=== PATIENT | male | born 1965 | race Caucasian/White ===

== ENCOUNTER 2017-12-06 20:06 | Inpatient (IN) | payer SELFPAY ==
[~2017-12-06] VITALS: Ht 177.8 cm; Wt 64.7 kg
[~2017-12-06 20:06] MED LIST: BUSP30TA PO; CLON1TAB4 PO; CLON2TAB PO; LEVE500T56 PO; MIRT30TA PO; OXYC-328 PO; OXYC10TA PO; QUET50TA5 PO
[2017-12-06 20:42] LABS: BILIRUBIN,URINE NEGATIVE (NEG); CLARITY,URINE CLEAR; COLOR,URINE YELLOW; NITRITE,URINE NEGATIVE (NEG); PH,URINE 6.5; PROTEIN,URINE NEGATIVE (NEG-TRACE); UROBILINOGEN,URINE 0.2 mg/dL (0.2 mg/dL)
[2017-12-06] MEDS ORDERED: IV NORMAL SALINE 1000ML BAG 1,000 ML IV ONE ×2 (20:45→22:15)
[2017-12-06] MEDS ORDERED: MORPHINE SULFATE 10 MG/ML VIAL. IV ONE ×2 (20:45→22:15)
[2017-12-06] MEDS ORDERED: ONDANSETRON PF 4 MG/2 ML VIAL. IV ONE (20:45)
[2017-12-06 20:47] LABS: BASO % 0 % (0-3); EOS % 0 % (0-3); HEMATOCRIT 35.2 % (39.0-53.0); HEMOGLOBIN 12.2 g/dL (13.0-17.5); LYMPH # 1.2 x10^3/uL (1.0-4.8); LYMPH % 19 % (24-48); MEAN CORPUSCULAR HEMOGLOBIN 33 pg (25-35); MEAN CORPUSCULAR HGB CONC 35 g/dL (31-37); MEAN CORPUSCULAR VOLUME 95 fL (79-100); MONO # 0.3 x10^3/uL (0.0-1.1); MONO % 5 % (0-9); NEUT # 4.7 x10^3uL (1.8-7.7); NEUT % 76 % (31-73); PLATELET COUNT 253 x10^3/uL (140-400); RED BLOOD COUNT 3.73 x10^6/uL (4.30-5.70); RED CELL DISTRIBUTION WIDTH 12.4 % (11.5-14.5); WHITE BLOOD COUNT 6.2 x10^3/uL (4.0-11.0)
[2017-12-06 20:51] LABS: BACTERIA,URINE 0 /HPF (0-FEW); RBC,URINE 0 /HPF (0-2); WBC,URINE 0 /HPF (0-4)
[2017-12-06 20:56] LABS: CALCIUM 8.8 mg/dL (8.5-10.1); CREATININE 0.8 mg/dL (0.7-1.3); GFR 101.9; POTASSIUM 3.9 mmol/L (3.5-5.1)
[2017-12-06 20:59] LABS: BARBITURATES NEG (NEG); BENZODIAZEPINES NEG (NEG); CANNABINOIDS NEG (NEG); COCAINE NEG (NEG); METHADONE NEG (NEG); OPIATES NEG (NEG); PHENCYCLIDINE NEG (NEG)
[2017-12-06 21:00] LABS: AMPHETAMINE/METHAMPHETAMINE NEG (NEG)
[2017-12-06] MEDS ORDERED: CONTRAST GIVEN. MC PRN (21:00)
[2017-12-06] MEDS ORDERED: IOHEXOL 300 MG/ML 100ML VIAL. IV ONE (21:00)
[2017-12-06 21:01] LABS: ALBUMIN 3.7 g/dL (3.4-5.0); ALBUMIN/GLOBULIN RATIO 1.2 (1.0-1.7); TOTAL BILIRUBIN 0.3 mg/dL (0.2-1.0); TOTAL PROTEIN 6.8 g/dL (6.4-8.2)
--- NOTE | 2017-12-06 21:12 | PHYS DOC ---
Past Medical History Past Medical History: Depression, Diverticulitis, Pancreatitis Additional Past Medical Histor: chronic low back pain Past Surgical History: Other Additional Past Surgical Histo: SPINAL FUSION, HERNIA X 2, L ANKLE SX Alcohol Use: None Drug Use: None Adult General Chief Complaint Chief Complaint: ABDOMINAL PAIN HPI HPI Patient is a 52 year old male with history of pancreatitis, diverticulitis, depression, who presents today complaining of 8 out of 10 left-sided abdominal pain with nausea, vomiting and diarrhea that began 4 days ago. Patient denies any fever. Denies any alcohol abuse. Denies any chest pain or shortness of breath. Denies any hematemesis or melena. Denies any urgency frequency or dysuria. PCP Dr. Lawler Review of Systems Review of Systems Constitutional: Denies fever or chills [] Eyes: Denies change in visual acuity, redness, or eye pain [] HENT: Denies nasal congestion or sore throat [] Respiratory: Denies cough or shortness of breath [] Cardiovascular: No additional information not addressed in HPI [] GI: Reports left-sided abdominal pain, nausea vomiting and diarrhea denies, bloody stools : Denies dysuria or hematuria [] Musculoskeletal: Denies back pain or joint pain [] Integument: Denies rash or skin lesions [] Neurologic: Denies headache, focal weakness or sensory changes [] All other systems were reviewed and found to be within normal limits, except as documented in this note. Current Medications Current Medications Current Medications Medications (Trade) Dose Ordered Sig/Ni Start Time Stop Time Status Last Admin Dose Admin Info (CONTRAST GIVEN -- Rx MONITORING) 1 each PRN DAILY PRN 12/06/17 21:00 12/08/17 20:59 Iohexol (Omnipaque 300 Mg/ml) 75 ml 1X ONCE 12/06/17 21:00 12/06/17 21:01 DC 12/06/17 21:11 75 ML Morphine Sulfate (Morphine Sulfate) 5 mg 1X ONCE 12/06/17 22:15 12/06/17 22:16 DC Ondansetron HCl (Zofran) 4 mg 1X ONCE 12/06/17 20:45 12/06/17 20:51 DC 12/06/17 20:45 4 MG Sodium Chloride 1,000 ml @ 1,000 mls/hr 1X ONCE 12/06/17 20:45 12/06/17 21:44 DC 12/06/17 20:45 1,000 MLS/HR Allergies Allergies Allergies Coded Allergies Type Severity Reaction Last Updated Verified Penicillins Allergy Severe Anaphylaxis 02/07/15 Yes sulfamethoxazole Allergy Severe Anaphylaxis 02/07/15 Yes trimethoprim Allergy Severe Anaphylaxis 02/07/15 Yes acetaminophen Allergy Intermediate R/T PANCREATITIS 01/03/17 Yes Physical Exam Physical Exam Constitutional: Well developed, well nourished, no acute distress, non-toxic appearance. [] HENT: Normocephalic, atraumatic, bilateral external ears normal, oropharynx moist, no oral exudates, nose normal. [] Eyes: PERRLA, EOMI, conjunctiva normal, no discharge. [] Neck: Normal range of motion, no tenderness, supple, no stridor. [] Cardiovascular:Heart rate regular rhythm, no murmur [] Lungs & Thorax: Bilateral breath sounds clear to auscultation [] Abdomen: Bowel sounds normal, soft, slight tenderness to epigastric and left upper quadrant, no right upper quadrant or right lower quadrant tenderness, no masses, no pulsatile masses. [] Skin: Warm, dry, no erythema, no rash. [] Back: No tenderness, no CVA tenderness. [] Extremities: No tenderness, no cyanosis, no clubbing, ROM intact, no edema. [] Neurologic: Alert and oriented X 3, normal motor function, normal sensory function, no focal deficits noted. [] Psychologic: Affect normal, judgement normal, mood normal. [] Current Patient Data Vital Signs Vital Signs Date Time Temp Pulse Resp B/P (MAP) Pulse Ox O2 Delivery O2 Flow Rate FiO2 12/06/17 20:16 98.0 87 18 128/62 (84) 99 Room Air 98.0 Lab Values Laboratory Tests Test 12/06/17 20:30 White Blood Count 6.2 x10^3/uL (4.0-11.0) Red Blood Count 3.73 x10^6/uL (4.30-5.70) L Hemoglobin 12.2 g/dL (13.0-17.5) L Hematocrit 35.2 % (39.0-53.0) L Mean Corpuscular Volume 95 fL (79-100) Mean Corpuscular Hemoglobin 33 pg (25-35) Mean Corpuscular Hemoglobin Concent 35 g/dL (31-37) Red Cell Distribution Width 12.4 % (11.5-14.5) Platelet Count 253 x10^3/uL (140-400) Neutrophils (%) (Auto) 76 % (31-73) H Lymphocytes (%) (Auto) 19 % (24-48) L Monocytes (%) (Auto) 5 % (0-9) Eosinophils (%) (Auto) 0 % (0-3) Basophils (%) (Auto) 0 % (0-3) Neutrophils # (Auto) 4.7 x10^3uL (1.8-7.7) Lymphocytes # (Auto) 1.2 x10^3/uL (1.0-4.8) Monocytes # (Auto) 0.3 x10^3/uL (0.0-1.1) Eosinophils # (Auto) 0.0 x10^3/uL (0.0-0.7) Basophils # (Auto) 0.0 x10^3/uL (0.0-0.2) Urine Collection Type Unknown Urine Color Yellow Urine Clarity Clear Urine pH 6.5 Urine Specific [place] 1.015 Urine Protein Negative mg/dL (NEG-TRACE) Urine Glucose (UA) Negative mg/dL (NEG) Urine Ketones (Stick) Negative mg/dL (NEG) Urine Blood Negative (NEG) Urine Nitrite Negative (NEG) Urine Bilirubin Negative (NEG) Urine Urobilinogen Dipstick 0.2 mg/dL (0.2 mg/dL) Urine Leukocyte Esterase Negative (NEG) Urine RBC 0 /HPF (0-2) Urine WBC 0 /HPF (0-4) Urine Bacteria 0 /HPF (0-FEW) Urine Mucus Slight /LPF Sodium Level 141 mmol/L (136-145) Potassium Level 3.9 mmol/L (3.5-5.1) Chloride Level 104 mmol/L (98-107) Carbon Dioxide Level 28 mmol/L (21-32) Anion Gap 9 (6-14) Blood Urea Nitrogen 6 mg/dL (8-26) L Creatinine 0.8 mg/dL (0.7-1.3) Estimated GFR (Cockcroft-Gault) 101.9 BUN/Creatinine Ratio 8 (6-20) Glucose Level 125 mg/dL (70-99) H Calcium Level 8.8 mg/dL (8.5-10.1) Total Bilirubin 0.3 mg/dL (0.2-1.0) Aspartate Amino Transferase (AST) 13 U/L (15-37) L Alanine Aminotransferase (ALT) 17 U/L (16-63) Alkaline Phosphatase 68 U/L (46-116) Total Protein 6.8 g/dL (6.4-8.2) Albumin 3.7 g/dL (3.4-5.0) Albumin/Globulin Ratio 1.2 (1.0-1.7) Lipase 78 U/L (73-393) Urine Opiates Screen Neg (NEG) Urine Methadone Screen Neg (NEG) Urine Barbiturates Neg (NEG) Urine Phencyclidine Screen Neg (NEG) Urine Amphetamine/Methamphetamine Neg (NEG) Urine Benzodiazepines Screen Neg (NEG) Urine Cocaine Screen Neg (NEG) Urine Cannabinoids Screen Neg (NEG) Ethyl Alcohol Level < 10 mg/dL (0-10) Urine Ethyl Alcohol Neg (NEG) Laboratory Tests 12/06/17 20:30 Laboratory Tests 12/06/17 20:30 EKG EKG [] Radiology/Procedures Radiology/Procedures []PROCEDURE: CT ABD PELV W/ IV CONTRST ONLY CT scan of the abdomen and pelvis with contrast 12/06/2017 CLINICAL HISTORY: Left lower quadrant abdominal pain. TECHNIQUE: After the intravenous administration of 75 cc of Omnipaque 300, contiguous, 5 mm axial sections were obtained through the abdomen and pelvis. One or more of the following individualized dose reduction techniques were utilized for this study: 1. Automated exposure control. 2. Adjustment of the mA and/or kV according to patient size. 3. Use of iterative reconstruction technique. FINDINGS: Comparison study is dated 06/24/2017. Images through the lung bases demonstrate a 6 mm calcified granuloma involving the right lower lobe, unchanged. The liver, adrenal glands and kidneys are within normal limits. Calcified granuloma seen involving the spleen, unchanged. Atrophy of the tail of pancreas is noted. Multiple calcifications are seen throughout the pancreas consistent with chronic pancreatitis. No acute abnormality of the pancreas is seen. The abdominal aorta tapers normally. The gallbladder is slightly contracted. No free fluid or free air is seen within the abdomen. There is no evidence of bowel obstruction. Images through the pelvis demonstrate the urinary bladder distended with urine. Calcifications are seen within the pelvis consistent with phleboliths. No free fluid is seen. The patient is post laminectomy, discectomy and fusion using pedicle screws, stabilizing rods and bone graft material at L4-5. IMPRESSION: No acute abnormality is seen. Electronically signed by: Micah Wilson MD (12/06/2017 9:40 PM) [facility] DICTATED and SIGNED BY: MICAH WILSON MD DATE: 12/06/17 4673 Course & Med Decision Making Course & Med Decision Making Pertinent Labs and Imaging studies reviewed. (See chart for details) This is a 52-year-old male patient with history of pancreatitis and diverticulitis who presents today complaining of left-sided abdominal pain with nausea vomiting and diarrhea that began 4 days ago. Patient is asking for Dilaudid on arrival to the ED. CBC, CMP, lipase with no acute findings. CT of the abdomen and pelvic was negative for any acute findings, noted for chronic pancreatitis. Gave patient results, his first comment was "i thought CTs take 2 hours to come back" Informed him we not busy today and his CT results came back less than 2 hours. Informed patient there is nothing acute in his workup today. Patient states he would like to be admitted for intractable pain. Ktracs shows he filled rx for oxycodone 20 mg 180 tablets on 11/22/2017. 22:[address] Paredes who accepted patient for admission. Radames Disclaimer Radames Disclaimer This electronic medical record was generated, in whole or in part, using a voice recognition dictation system. Departure Departure Impression: Primary Impression: Intractable abdominal pain Additional Impressions: Nausea and vomiting Diarrhea Chronic pancreatitis Disposition: ADMITTED INPATIENT Condition: STABLE Referrals: SANDRA LAWLER (PCP) Problem Qualifiers Additional Impressions: Nausea and vomiting Vomiting type: unspecified Vomiting Intractability: unspecified Qualified Codes: R11.2 - Nausea with vomiting, unspecified Diarrhea Diarrhea type: unspecified type Qualified Codes: R19.7 - Diarrhea, unspecified Chronic pancreatitis Pancreatitis type: unspecified pancreatitis type Qualified Codes: K86.1 - Other chronic pancreatitis JOE ALMONTE APRN Dec 06, 2017 21:12
--- NOTE | 2017-12-06 21:44 | RAD ---
CT scan of the abdomen and pelvis with contrast 12/06/2017 CLINICAL HISTORY: Left lower quadrant abdominal pain. TECHNIQUE: After the intravenous administration of 75 cc of Omnipaque 300, contiguous, 5 mm axial sections were obtained through the abdomen and pelvis. One or more of the following individualized dose reduction techniques were utilized for this study: 1. Automated exposure control. 2. Adjustment of the mA and/or kV according to patient size. 3. Use of iterative reconstruction technique. FINDINGS: Comparison study is dated 06/24/2017. Images through the lung bases demonstrate a 6 mm calcified granuloma involving the right lower lobe, unchanged. The liver, adrenal glands and kidneys are within normal limits. Calcified granuloma seen involving the spleen, unchanged. Atrophy of the tail of pancreas is noted. Multiple calcifications are seen throughout the pancreas consistent with chronic pancreatitis. No acute abnormality of the pancreas is seen. The abdominal aorta tapers normally. The gallbladder is slightly contracted. No free fluid or free air is seen within the abdomen. There is no evidence of bowel obstruction. Images through the pelvis demonstrate the urinary bladder distended with urine. Calcifications are seen within the pelvis consistent with phleboliths. No free fluid is seen. The patient is post laminectomy, discectomy and fusion using pedicle screws, stabilizing rods and bone graft material at L4-5. IMPRESSION: No acute abnormality is seen. Electronically signed by: Micah Wilson MD (12/06/2017 9:40 PM) [facility]
[2017-12-07] VITALS (8 sets, daily range): BP systolic 87–123; BP diastolic 50–73
[2017-12-07] MEDS ORDERED: OXYC60TA7 PO (00:04)
[2017-12-07] MEDS: MORPHINE SULFATE 4 MG/ML DISP.SYRIN. IV PRN ×5 (00:15→08:48)
[2017-12-07 07:29] LABS: BASO % 1 % (0-3); EOS # 0.1 x10^3/uL (0.0-0.7); EOS % 3 % (0-3); HEMATOCRIT 31.6 % (39.0-53.0); LYMPH # 1.9 x10^3/uL (1.0-4.8); LYMPH % 42 % (24-48); MEAN CORPUSCULAR HEMOGLOBIN 33 pg (25-35); MEAN CORPUSCULAR HGB CONC 35 g/dL (31-37); MEAN CORPUSCULAR VOLUME 95 fL (79-100); MONO # 0.3 x10^3/uL (0.0-1.1); MONO % 6 % (0-9); NEUT # 2.2 x10^3uL (1.8-7.7); NEUT % 48 % (31-73); PLATELET COUNT 187 x10^3/uL (140-400); RED BLOOD COUNT 3.34 x10^6/uL (4.30-5.70); RED CELL DISTRIBUTION WIDTH 12.8 % (11.5-14.5); WHITE BLOOD COUNT 4.6 x10^3/uL (4.0-11.0)
[2017-12-07 07:52] LABS: ALBUMIN 3.1 g/dL (3.4-5.0); ALBUMIN/GLOBULIN RATIO 1.1 (1.0-1.7); CALCIUM 8.4 mg/dL (8.5-10.1); CREATININE 0.8 mg/dL (0.7-1.3); GFR 101.9; POTASSIUM 3.7 mmol/L (3.5-5.1); TOTAL BILIRUBIN 0.4 mg/dL (0.2-1.0)
[2017-12-07] MEDS: ONDANSETRON PF 4 MG/2 ML VIAL. IV PRN ×2 (08:50→17:18)
[2017-12-07] MEDS ORDERED: PANT20TA2 PO (08:56)
--- NOTE | 2017-12-07 09:27 | PDOC2 ---
GI CONSULT Reason For Consult: Intractable abd pain, n/v HPI: HPI: 52 y/o male who we have seen a few times before. Previous h/o alcohol abuse w/ chronic pancreatitis, pancreatic stone, and chronic abd pain w/ intermittent n/ v and diarrhea w/ reported weight loss. On oxycodone QID. Has had more than one surgical eval here in the past but has not pursued surgery saying that he wants a second opinion at [facility]. He says his PCP, Dr. Linton, sent a referral there last week. He says since his last admission here in 05/2017, he has been to the ER and [facility] urgent care. Current episode began 4 days ago w/o precipitating events. 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 Denies bleeding. Doesn't think previous EGD though one discussed earlier this year @ . Reports benign polyps on colonoscopy in 2016. Denies liver or GB history. Has declined pancreatic enzymes in the past as these have been ineffective previously. He doesn't know if he wants to try drinking liquids and wants to know when his pain medication will be brought to him. PMH: PMH: GERD, pancreatitis, seizures, anxiety, depression, bipolar, umbilical hernia repair, left inguinal hernia repair, left ankle fracture/surgery, lumbar fusion FH: Family History: No pertinent hx Social History: Smoke: Quit ALCOHOL: other (drank when he was younger - none now) ROS: GEN: Denies fevers, chills, sweats HEENT: Denies blurred vision, sore throat CV: Denies chest pain RESP: Denies shortness of air, cough GI: Per HPI : Denies hematuria, dysuria ENDO: +weight loss NEURO: Denies confusion, dizziness MSK: Denies weakness, joint pain/swelling SKIN: Denies jaundice, pruritus Vitals: Vitals: Vital Signs Date Time Temp Pulse Resp B/P (MAP) Pulse Ox O2 Delivery O2 Flow Rate FiO2 12/07/17 08:48 97 Room Air 12/07/17 07:00 98.2 46 16 97/55 (69) 98.2 Labs: Labs: Laboratory Tests Test 12/06/17 20:30 12/07/17 06:30 White Blood Count 6.2 x10^3/uL (4.0-11.0) 4.6 x10^3/uL (4.0-11.0) Red Blood Count 3.73 x10^6/uL (4.30-5.70) 3.34 x10^6/uL (4.30-5.70) Hemoglobin 12.2 g/dL (13.0-17.5) 11.0 g/dL (13.0-17.5) Hematocrit 35.2 % (39.0-53.0) 31.6 % (39.0-53.0) Mean Corpuscular Volume 95 fL (79-100) 95 fL (79-100) Mean Corpuscular Hemoglobin 33 pg (25-35) 33 pg (25-35) Mean Corpuscular Hemoglobin Concent 35 g/dL (31-37) 35 g/dL (31-37) Red Cell Distribution Width 12.4 % (11.5-14.5) 12.8 % (11.5-14.5) Platelet Count 253 x10^3/uL (140-400) 187 x10^3/uL (140-400) Neutrophils (%) (Auto) 76 % (31-73) 48 % (31-73) Lymphocytes (%) (Auto) 19 % (24-48) 42 % (24-48) Monocytes (%) (Auto) 5 % (0-9) 6 % (0-9) Eosinophils (%) (Auto) 0 % (0-3) 3 % (0-3) Basophils (%) (Auto) 0 % (0-3) 1 % (0-3) Neutrophils # (Auto) 4.7 x10^3uL (1.8-7.7) 2.2 x10^3uL (1.8-7.7) Lymphocytes # (Auto) 1.2 x10^3/uL (1.0-4.8) 1.9 x10^3/uL (1.0-4.8) Monocytes # (Auto) 0.3 x10^3/uL (0.0-1.1) 0.3 x10^3/uL (0.0-1.1) Eosinophils # (Auto) 0.0 x10^3/uL (0.0-0.7) 0.1 x10^3/uL (0.0-0.7) Basophils # (Auto) 0.0 x10^3/uL (0.0-0.2) 0.0 x10^3/uL (0.0-0.2) Urine Collection Type Unknown Urine Color Yellow Urine Clarity Clear Urine pH 6.5 Urine Specific [place] 1.015 Urine Protein Negative mg/dL (NEG-TRACE) Urine Glucose (UA) Negative mg/dL (NEG) Urine Ketones (Stick) Negative mg/dL (NEG) Urine Blood Negative (NEG) Urine Nitrite Negative (NEG) Urine Bilirubin Negative (NEG) Urine Urobilinogen Dipstick 0.2 mg/dL (0.2 mg/dL) Urine Leukocyte Esterase Negative (NEG) Urine RBC 0 /HPF (0-2) Urine WBC 0 /HPF (0-4) Urine Bacteria 0 /HPF (0-FEW) Urine Mucus Slight /LPF Sodium Level 141 mmol/L (136-145) 143 mmol/L (136-145) Potassium Level 3.9 mmol/L (3.5-5.1) 3.7 mmol/L (3.5-5.1) Chloride Level 104 mmol/L (98-107) 108 mmol/L (98-107) Carbon Dioxide Level 28 mmol/L (21-32) 29 mmol/L (21-32) Anion Gap 9 (6-14) 6 (6-14) Blood Urea Nitrogen 6 mg/dL (8-26) 5 mg/dL (8-26) Creatinine 0.8 mg/dL (0.7-1.3) 0.8 mg/dL (0.7-1.3) Estimated GFR (Cockcroft-Gault) 101.9 101.9 BUN/Creatinine Ratio 8 (6-20) 6 (6-20) Glucose Level 125 mg/dL (70-99) 105 mg/dL (70-99) Calcium Level 8.8 mg/dL (8.5-10.1) 8.4 mg/dL (8.5-10.1) Total Bilirubin 0.3 mg/dL (0.2-1.0) 0.4 mg/dL (0.2-1.0) Aspartate Amino Transf (AST/SGOT) 13 U/L (15-37) 11 U/L (15-37) Alanine Aminotransferase (ALT/SGPT) 17 U/L (16-63) 14 U/L (16-63) Alkaline Phosphatase 68 U/L (46-116) 54 U/L (46-116) Total Protein 6.8 g/dL (6.4-8.2) 6.0 g/dL (6.4-8.2) Albumin 3.7 g/dL (3.4-5.0) 3.1 g/dL (3.4-5.0) Albumin/Globulin Ratio 1.2 (1.0-1.7) 1.1 (1.0-1.7) Lipase 78 U/L (73-393) Urine Opiates Screen Neg (NEG) Urine Methadone Screen Neg (NEG) Urine Barbiturates Neg (NEG) Urine Phencyclidine Screen Neg (NEG) Urine Amphetamine/Methamphetamine Neg (NEG) Urine Benzodiazepines Screen Neg (NEG) Urine Cocaine Screen Neg (NEG) Urine Cannabinoids Screen Neg (NEG) Ethyl Alcohol Level < 10 mg/dL (0-10) Urine Ethyl Alcohol Neg (NEG) Allergies: Coded Allergies: Penicillins (Verified Allergy, Severe, Anaphylaxis, 02/07/15) sulfamethoxazole (Verified Allergy, Severe, Anaphylaxis, 02/07/15) trimethoprim (Verified Allergy, Severe, Anaphylaxis, 02/07/15) acetaminophen (Verified Allergy, Intermediate, R/T PANCREATITIS, 01/03/17) Medications: Current Medications Medications (Trade) Dose Ordered Sig/Ni Route PRN Reason Start Time Stop Time Status Last Admin Dose Admin Sodium Chloride 1,000 ml @ 1,000 mls/hr 1X ONCE IV 12/06/17 20:45 12/06/17 21:44 DC 12/06/17 20:45 Ondansetron HCl (Zofran) 4 mg 1X ONCE IV 12/06/17 20:45 12/06/17 20:51 DC 12/06/17 20:45 Morphine Sulfate (Morphine Sulfate) 5 mg 1X ONCE IV 12/06/17 20:45 12/06/17 20:50 DC 12/06/17 20:45 Iohexol (Omnipaque 300 Mg/ml) 75 ml 1X ONCE IV 12/06/17 21:00 12/06/17 21:01 DC 12/06/17 21:11 Morphine Sulfate (Morphine Sulfate) 5 mg 1X ONCE IV 12/06/17 22:15 12/06/17 22:16 DC 12/06/17 22:15 Ondansetron HCl (Zofran) 4 mg PRN Q8HRS PRN IV NAUSEA/VOMITING 12/06/17 22:15 12/07/17 22:14 12/07/17 08:50 Morphine Sulfate (Morphine Sulfate) 4 mg PRN Q2HR PRN IV PAIN 12/06/17 22:15 12/07/17 22:14 12/07/17 08:48 Sodium Chloride 1,000 ml @ 100 mls/hr 1X ONCE IV 12/06/17 22:15 12/07/17 08:14 DC 12/07/17 00:41 Imaging: Imaging: CT A/P Images through the lung bases demonstrate a 6 mm calcified granuloma involving the right lower lobe, unchanged. The liver, adrenal glands and kidneys are within normal limits. Calcified granuloma seen involving the spleen, unchanged. Atrophy of the tail of pancreas is noted. Multiple calcifications are seen throughout the pancreas consistent with chronic pancreatitis. No acute abnormality of the pancreas is seen. The abdominal aorta tapers normally. The gallbladder is slightly contracted. No free fluid or free air is seen within the abdomen. There is no evidence of bowel obstruction. Images through the pelvis demonstrate the urinary bladder distended with urine. Calcifications are seen within the pelvis consistent with phleboliths. No free fluid is seen. The patient is post laminectomy, discectomy and fusion using pedicle screws, stabilizing rods and bone graft material at L4- 5. IMPRESSION: No acute abnormality is seen. PE: GEN: NAD HEENT: Atraumatic, PERRL LUNGS: CTAB HEART: bradycardic ABD: NABS, periumbilical discomfort EXTREMITY: No edema SKIN: No rashes, no jaundice NEURO/PSYCH: A & O 3, flat, does not make eye contact, seems annoyed A/P: A/P: Chronic abd pain w/ recurrent n/v, diarrhea, and weight loss Chronic pancreatitis, pancreatic stone - surgery offered in the past, declined by pt who wants to be seen at 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 Pain control per primary - hostile to staff in the past. Okay to try [employer] fox. SHAJI RIBERA Dec 07, 2017 09:27
--- NOTE | 2017-12-07 09:55 | PDOC1 ---
History and Physical Date of Admission Date of Admission DATE: 12/07/17 TIME: 09:52 Identification/Chief Complaint Chief Complaint abd pain Source Source: Chart review, Patient History of Present Illness History of Present Illness Vu is a 52 y/o male readmit with worsening abd pain. . Previous h/o alcohol abuse w/ chronic pancreatitis, pancreatic stone, and chronic abd pain w/ intermittent n/v and diarrhea w/ reported weight loss. was DC here on oxycodone QID. prior surgical eval here, has not followed up, plans to [facility] Past Medical History Cardiovascular: No pertinent hx Pulmonary: No pertinent hx CENTRAL NERVOUS SYSTEM: Seizure GI: No pertinent hx Heme/Onc: No pertinent hx Hepatobiliary: No pertinent hx Psych: Anxiety Musculoskeletal: low back pain Rheumatologic: No pertinent hx Infectious disease: No pertinent hx Renal/: No pertinent hx Endocrine: No pertinent hx Past Surgical History Past Surgical History: Other Family History Family History: No Significant Social History Smoke: Quit ALCOHOL: other (drank when he was younger - none now) Current Problem List Problem List Problems Medical Problems: (1) Chronic pancreatitis Status: Acute (2) Diarrhea Status: Acute (3) Intractable abdominal pain Status: Acute (4) Nausea and vomiting Status: Acute Current Medications Current Medications Current Medications Sodium Chloride 1,000 ml @ 1,000 mls/hr 1X ONCE IV Last administered on at 20:45; Start 12/06/17 at 20:45; Stop 12/06/17 at 21:44; Status DC Ondansetron HCl (Zofran) 4 mg 1X ONCE IV Last administered on 12/06/17at 20:45; Start 12/06/17 at 20:45; Stop 12/06/17 at 20:51; Status DC Morphine Sulfate (Morphine Sulfate) 5 mg 1X ONCE IV Last administered on at 20:45; Start 12/06/17 at 20:45; Stop 12/06/17 at 20:50; Status DC Iohexol (Omnipaque 300 Mg/ml) 75 ml 1X ONCE IV Last administered on 12/06/17at 21:11; Start 12/06/17 at 21:00; Stop 12/06/17 at 21:01; Status DC Info (CONTRAST GIVEN -- Rx MONITORING) 1 each PRN DAILY PRN MC SEE COMMENTS; Start 12/06/17 at 21:00; Stop 12/08/17 at 20:59 Morphine Sulfate (Morphine Sulfate) 5 mg 1X ONCE IV Last administered on at 22:15; Start 12/06/17 at 22:15; Stop 12/06/17 at 22:16; Status DC Ondansetron HCl (Zofran) 4 mg PRN Q8HRS PRN IV NAUSEA/VOMITING Last administered on 12/07/17at 08:50; Start 12/06/17 at 22:15; Stop 12/07/17 at 22:14 Morphine Sulfate (Morphine Sulfate) 4 mg PRN Q2HR PRN IV PAIN Last administered on 12/07/17at 08:48; Start 12/06/17 at 22:15; Stop 12/07/17 at 22:14 Sodium Chloride 1,000 ml @ 100 mls/hr 1X ONCE IV Last administered on at 00:41; Start 12/06/17 at 22:15; Stop 12/07/17 at 08:14; Status DC Pantoprazole Sodium (Protonix) 40 mg DAILYAC PO ; Start 12/07/17 at 10:00 Morphine Sulfate (Ms Contin) 30 mg BID PO ; Start 12/07/17 at 10:00 Non-Formulary Medication (Pantoprazole Sodium (Protonix)) 1 tab DAILY PO ; Start 12/08/17 at 09:00; Status UNV Quetiapine Fumarate (SEROquel) 100 mg QHS PO ; Start 12/07/17 at 21:00 Active Scripts Active Reported Protonix (Pantoprazole Sodium) 20 Mg Tablet.dr 1 Tab PO DAILY Oxycontin (Oxycodone HCl) 60 Mg Tab.er.12h 60 Mg PO QID Clonazepam 1 Mg Tablet 2 Mg PO HS Seroquel (Quetiapine Fumarate) 50 Mg Tablet 100 Mg PO HS Take one tablet by mouth twice a day, and take 2 tablets by mouth every night at bedtime. Allergies Allergies: Coded Allergies: Penicillins (Verified Allergy, Severe, Anaphylaxis, 02/07/15) sulfamethoxazole (Verified Allergy, Severe, Anaphylaxis, 02/07/15) trimethoprim (Verified Allergy, Severe, Anaphylaxis, 02/07/15) acetaminophen (Verified Allergy, Intermediate, R/T PANCREATITIS, 01/03/17) Physical Exam General: Alert, Cooperative, mild distress HEENT: PERRLA Lungs: Clear to auscultation Heart: S1S2 Abdomen: Other (tender) Rectal Exam: not examined Extremities: No cyanosis, No edema Skin: No rashes, No significant lesion Neuro: Normal speech Psych/Mental Status: Mood NL Vitals Vitals Vital Signs Date Time Temp Pulse Resp B/P (MAP) Pulse Ox O2 Delivery O2 Flow Rate FiO2 12/07/17 08:48 97 Room Air 12/07/17 07:00 98.2 46 16 97/55 (69) 98.2 Labs Labs Laboratory Tests Test 12/06/17 20:30 12/07/17 06:30 White Blood Count 6.2 x10^3/uL (4.0-11.0) 4.6 x10^3/uL (4.0-11.0) Red Blood Count 3.73 x10^6/uL (4.30-5.70) 3.34 x10^6/uL (4.30-5.70) Hemoglobin 12.2 g/dL (13.0-17.5) 11.0 g/dL (13.0-17.5) Hematocrit 35.2 % (39.0-53.0) 31.6 % (39.0-53.0) Mean Corpuscular Volume 95 fL (79-100) 95 fL (79-100) Mean Corpuscular Hemoglobin 33 pg (25-35) 33 pg (25-35) Mean Corpuscular Hemoglobin Concent 35 g/dL (31-37) 35 g/dL (31-37) Red Cell Distribution Width 12.4 % (11.5-14.5) 12.8 % (11.5-14.5) Platelet Count 253 x10^3/uL (140-400) 187 x10^3/uL (140-400) Neutrophils (%) (Auto) 76 % (31-73) 48 % (31-73) Lymphocytes (%) (Auto) 19 % (24-48) 42 % (24-48) Monocytes (%) (Auto) 5 % (0-9) 6 % (0-9) Eosinophils (%) (Auto) 0 % (0-3) 3 % (0-3) Basophils (%) (Auto) 0 % (0-3) 1 % (0-3) Neutrophils # (Auto) 4.7 x10^3uL (1.8-7.7) 2.2 x10^3uL (1.8-7.7) Lymphocytes # (Auto) 1.2 x10^3/uL (1.0-4.8) 1.9 x10^3/uL (1.0-4.8) Monocytes # (Auto) 0.3 x10^3/uL (0.0-1.1) 0.3 x10^3/uL (0.0-1.1) Eosinophils # (Auto) 0.0 x10^3/uL (0.0-0.7) 0.1 x10^3/uL (0.0-0.7) Basophils # (Auto) 0.0 x10^3/uL (0.0-0.2) 0.0 x10^3/uL (0.0-0.2) Urine Collection Type Unknown Urine Color Yellow Urine Clarity Clear Urine pH 6.5 Urine Specific [place] 1.015 Urine Protein Negative mg/dL (NEG-TRACE) Urine Glucose (UA) Negative mg/dL (NEG) Urine Ketones (Stick) Negative mg/dL (NEG) Urine Blood Negative (NEG) Urine Nitrite Negative (NEG) Urine Bilirubin Negative (NEG) Urine Urobilinogen Dipstick 0.2 mg/dL (0.2 mg/dL) Urine Leukocyte Esterase Negative (NEG) Urine RBC 0 /HPF (0-2) Urine WBC 0 /HPF (0-4) Urine Bacteria 0 /HPF (0-FEW) Urine Mucus Slight /LPF Sodium Level 141 mmol/L (136-145) 143 mmol/L (136-145) Potassium Level 3.9 mmol/L (3.5-5.1) 3.7 mmol/L (3.5-5.1) Chloride Level 104 mmol/L (98-107) 108 mmol/L (98-107) Carbon Dioxide Level 28 mmol/L (21-32) 29 mmol/L (21-32) Anion Gap 9 (6-14) 6 (6-14) Blood Urea Nitrogen 6 mg/dL (8-26) 5 mg/dL (8-26) Creatinine 0.8 mg/dL (0.7-1.3) 0.8 mg/dL (0.7-1.3) Estimated GFR (Cockcroft-Gault) 101.9 101.9 BUN/Creatinine Ratio 8 (6-20) 6 (6-20) Glucose Level 125 mg/dL (70-99) 105 mg/dL (70-99) Calcium Level 8.8 mg/dL (8.5-10.1) 8.4 mg/dL (8.5-10.1) Total Bilirubin 0.3 mg/dL (0.2-1.0) 0.4 mg/dL (0.2-1.0) Aspartate Amino Transf (AST/SGOT) 13 U/L (15-37) 11 U/L (15-37) Alanine Aminotransferase (ALT/SGPT) 17 U/L (16-63) 14 U/L (16-63) Alkaline Phosphatase 68 U/L (46-116) 54 U/L (46-116) Total Protein 6.8 g/dL (6.4-8.2) 6.0 g/dL (6.4-8.2) Albumin 3.7 g/dL (3.4-5.0) 3.1 g/dL (3.4-5.0) Albumin/Globulin Ratio 1.2 (1.0-1.7) 1.1 (1.0-1.7) Lipase 78 U/L (73-393) Urine Opiates Screen Neg (NEG) Urine Methadone Screen Neg (NEG) Urine Barbiturates Neg (NEG) Urine Phencyclidine Screen Neg (NEG) Urine Amphetamine/Methamphetamine Neg (NEG) Urine Benzodiazepines Screen Neg (NEG) Urine Cocaine Screen Neg (NEG) Urine Cannabinoids Screen Neg (NEG) Ethyl Alcohol Level < 10 mg/dL (0-10) Urine Ethyl Alcohol Neg (NEG) Laboratory Tests Test 12/06/17 20:30 12/07/17 06:30 White Blood Count 6.2 x10^3/uL (4.0-11.0) 4.6 x10^3/uL (4.0-11.0) Red Blood Count 3.73 x10^6/uL (4.30-5.70) 3.34 x10^6/uL (4.30-5.70) Hemoglobin 12.2 g/dL (13.0-17.5) 11.0 g/dL (13.0-17.5) Hematocrit 35.2 % (39.0-53.0) 31.6 % (39.0-53.0) Mean Corpuscular Volume 95 fL (79-100) 95 fL (79-100) Mean Corpuscular Hemoglobin 33 pg (25-35) 33 pg (25-35) Mean Corpuscular Hemoglobin Concent 35 g/dL (31-37) 35 g/dL (31-37) Red Cell Distribution Width 12.4 % (11.5-14.5) 12.8 % (11.5-14.5) Platelet Count 253 x10^3/uL (140-400) 187 x10^3/uL (140-400) Neutrophils (%) (Auto) 76 % (31-73) 48 % (31-73) Lymphocytes (%) (Auto) 19 % (24-48) 42 % (24-48) Monocytes (%) (Auto) 5 % (0-9) 6 % (0-9) Eosinophils (%) (Auto) 0 % (0-3) 3 % (0-3) Basophils (%) (Auto) 0 % (0-3) 1 % (0-3) Neutrophils # (Auto) 4.7 x10^3uL (1.8-7.7) 2.2 x10^3uL (1.8-7.7) Lymphocytes # (Auto) 1.2 x10^3/uL (1.0-4.8) 1.9 x10^3/uL (1.0-4.8) Monocytes # (Auto) 0.3 x10^3/uL (0.0-1.1) 0.3 x10^3/uL (0.0-1.1) Eosinophils # (Auto) 0.0 x10^3/uL (0.0-0.7) 0.1 x10^3/uL (0.0-0.7) Basophils # (Auto) 0.0 x10^3/uL (0.0-0.2) 0.0 x10^3/uL (0.0-0.2) Urine Collection Type Unknown Urine Color Yellow Urine Clarity Clear Urine pH 6.5 Urine Specific [place] 1.015 Urine Protein Negative mg/dL (NEG-TRACE) Urine Glucose (UA) Negative mg/dL (NEG) Urine Ketones (Stick) Negative mg/dL (NEG) Urine Blood Negative (NEG) Urine Nitrite Negative (NEG) Urine Bilirubin Negative (NEG) Urine Urobilinogen Dipstick 0.2 mg/dL (0.2 mg/dL) Urine Leukocyte Esterase Negative (NEG) Urine RBC 0 /HPF (0-2) Urine WBC 0 /HPF (0-4) Urine Bacteria 0 /HPF (0-FEW) Urine Mucus Slight /LPF Sodium Level 141 mmol/L (136-145) 143 mmol/L (136-145) Potassium Level 3.9 mmol/L (3.5-5.1) 3.7 mmol/L (3.5-5.1) Chloride Level 104 mmol/L (98-107) 108 mmol/L (98-107) Carbon Dioxide Level 28 mmol/L (21-32) 29 mmol/L (21-32) Anion Gap 9 (6-14) 6 (6-14) Blood Urea Nitrogen 6 mg/dL (8-26) 5 mg/dL (8-26) Creatinine 0.8 mg/dL (0.7-1.3) 0.8 mg/dL (0.7-1.3) Estimated GFR (Cockcroft-Gault) 101.9 101.9 BUN/Creatinine Ratio 8 (6-20) 6 (6-20) Glucose Level 125 mg/dL (70-99) 105 mg/dL (70-99) Calcium Level 8.8 mg/dL (8.5-10.1) 8.4 mg/dL (8.5-10.1) Total Bilirubin 0.3 mg/dL (0.2-1.0) 0.4 mg/dL (0.2-1.0) Aspartate Amino Transf (AST/SGOT) 13 U/L (15-37) 11 U/L (15-37) Alanine Aminotransferase (ALT/SGPT) 17 U/L (16-63) 14 U/L (16-63) Alkaline Phosphatase 68 U/L (46-116) 54 U/L (46-116) Total Protein 6.8 g/dL (6.4-8.2) 6.0 g/dL (6.4-8.2) Albumin 3.7 g/dL (3.4-5.0) 3.1 g/dL (3.4-5.0) Albumin/Globulin Ratio 1.2 (1.0-1.7) 1.1 (1.0-1.7) Lipase 78 U/L (73-393) Urine Opiates Screen Neg (NEG) Urine Methadone Screen Neg (NEG) Urine Barbiturates Neg (NEG) Urine Phencyclidine Screen Neg (NEG) Urine Amphetamine/Methamphetamine Neg (NEG) Urine Benzodiazepines Screen Neg (NEG) Urine Cocaine Screen Neg (NEG) Urine Cannabinoids Screen Neg (NEG) Ethyl Alcohol Level < 10 mg/dL (0-10) Urine Ethyl Alcohol Neg (NEG) VTE Prophylaxis Ordered VTE Prophylaxis Devices: No VTE Pharmacological Prophylaxi: Yes Assessment/Plan Assessment/Plan acute on chronic abdominal pain nausea and pain without vomiting pancreatitis, acute on chronic seemingly not compliant with prior admit DAY [employer]AVER MD Dec 07, 2017 09:55
[2017-12-07] MEDS ORDERED: IV NORMAL SALINE 1000ML BAG 1,000 ML IV ONE (10:00)
[2017-12-07] MEDS: POTASSIUM CL 20MEQ D5-0.45NACL 1,000 ML IV SCH ×2 (10:19→20:44)
[2017-12-07] MEDS: PANTOPRAZOLE 40 MG TABLET.DR. PO SCH (10:21)
[2017-12-07] MEDS: MORPHINE ER 30 MG TABLET.ER PO SCH ×2 (10:21→20:43)
[2017-12-07] MEDS: MORPHINE SULFATE 10 MG/ML VIAL. IV PRN ×6 (11:34→23:56)
[2017-12-07] MEDS: QUEtiapine 100 MG TABLET. PO SCH (20:43)
[2017-12-07] MEDS: clonazePAM 1 MG TABLET PO SCH (21:54)
[2017-12-08 03:01] VITALS: BP 93/63
[2017-12-08] MEDS: MORPHINE SULFATE 10 MG/ML VIAL. IV PRN ×3 (04:36→10:51)
[2017-12-08] MEDS: POTASSIUM CL 20MEQ D5-0.45NACL 1,000 ML IV SCH ×3 (05:26→20:53)
[2017-12-08 07:45] VITALS: BP 90/56
[2017-12-08] MEDS: MORPHINE ER 30 MG TABLET.ER PO SCH ×2 (08:32→20:52)
[2017-12-08] MEDS: PANTOPRAZOLE 40 MG TABLET.DR. PO SCH (08:32)
[2017-12-08] MEDS ORDERED: NON FORMULARY ITEM (Pantoprazole Sodium (Protonix) 1 TAB) PO SCH (09:00)
--- NOTE | 2017-12-08 11:02 | PDOC ---
PROGRESS NOTES Chief Complaint Chief Complaint acute on chronic abdominal pain nausea and pain without vomiting pancreatitis, acute on chronic diarrhea, and weight loss pancreatic stone - surgery offered in the past, declined GERD History of Present Illness History of Present Illness still complains of pain 9.10, pain meds and plan reviewed, try to limit IV pain meds, diet is not tolerated today cont IV Fluid support may DC if able to eat better, pain lessens Vitals Vitals Vital Signs Date Time Temp Pulse Resp B/P (MAP) Pulse Ox O2 Delivery O2 Flow Rate FiO2 12/08/17 10:51 16 Room Air 12/08/17 07:45 97.7 67 90/56 (67) 100 97.7 Physical Exam General: Alert, Cooperative, mild distress Lungs: Clear, Other Abdomen: Other (tender) Extremities: No cyanosis, No edema Skin: No rashes, No significant lesion Review of Systems Review of Systems abd pain, nausea Assessment and Plan Assessmemt and Plan Problems Medical Problems: (1) Chronic pancreatitis Status: Acute (2) Diarrhea Status: Acute (3) Intractable abdominal pain Status: Acute (4) Nausea and vomiting Status: Acute Comment Review of Relevant I have reviewed the following items massiel (where applicable) has been applied. Labs Laboratory Tests Test 12/06/17 20:30 12/07/17 00:15 12/07/17 06:30 White Blood Count 6.2 x10^3/uL (4.0-11.0) 4.6 x10^3/uL (4.0-11.0) Red Blood Count 3.73 x10^6/uL (4.30-5.70) 3.34 x10^6/uL (4.30-5.70) Hemoglobin 12.2 g/dL (13.0-17.5) 11.0 g/dL (13.0-17.5) Hematocrit 35.2 % (39.0-53.0) 31.6 % (39.0-53.0) Mean Corpuscular Volume 95 fL (79-100) 95 fL (79-100) Mean Corpuscular Hemoglobin 33 pg (25-35) 33 pg (25-35) Mean Corpuscular Hemoglobin Concent 35 g/dL (31-37) 35 g/dL (31-37) Red Cell Distribution Width 12.4 % (11.5-14.5) 12.8 % (11.5-14.5) Platelet Count 253 x10^3/uL (140-400) 187 x10^3/uL (140-400) Neutrophils (%) (Auto) 76 % (31-73) 48 % (31-73) Lymphocytes (%) (Auto) 19 % (24-48) 42 % (24-48) Monocytes (%) (Auto) 5 % (0-9) 6 % (0-9) Eosinophils (%) (Auto) 0 % (0-3) 3 % (0-3) Basophils (%) (Auto) 0 % (0-3) 1 % (0-3) Neutrophils # (Auto) 4.7 x10^3uL (1.8-7.7) 2.2 x10^3uL (1.8-7.7) Lymphocytes # (Auto) 1.2 x10^3/uL (1.0-4.8) 1.9 x10^3/uL (1.0-4.8) Monocytes # (Auto) 0.3 x10^3/uL (0.0-1.1) 0.3 x10^3/uL (0.0-1.1) Eosinophils # (Auto) 0.0 x10^3/uL (0.0-0.7) 0.1 x10^3/uL (0.0-0.7) Basophils # (Auto) 0.0 x10^3/uL (0.0-0.2) 0.0 x10^3/uL (0.0-0.2) Urine Collection Type Unknown Urine Color Yellow Urine Clarity Clear Urine pH 6.5 Urine Specific [place] 1.015 Urine Protein Negative mg/dL (NEG-TRACE) Urine Glucose (UA) Negative mg/dL (NEG) Urine Ketones (Stick) Negative mg/dL (NEG) Urine Blood Negative (NEG) Urine Nitrite Negative (NEG) Urine Bilirubin Negative (NEG) Urine Urobilinogen Dipstick 0.2 mg/dL (0.2 mg/dL) Urine Leukocyte Esterase Negative (NEG) Urine RBC 0 /HPF (0-2) Urine WBC 0 /HPF (0-4) Urine Bacteria 0 /HPF (0-FEW) Urine Mucus Slight /LPF Sodium Level 141 mmol/L (136-145) 143 mmol/L (136-145) Potassium Level 3.9 mmol/L (3.5-5.1) 3.7 mmol/L (3.5-5.1) Chloride Level 104 mmol/L (98-107) 108 mmol/L (98-107) Carbon Dioxide Level 28 mmol/L (21-32) 29 mmol/L (21-32) Anion Gap 9 (6-14) 6 (6-14) Blood Urea Nitrogen 6 mg/dL (8-26) 5 mg/dL (8-26) Creatinine 0.8 mg/dL (0.7-1.3) 0.8 mg/dL (0.7-1.3) Estimated GFR (Cockcroft-Gault) 101.9 101.9 BUN/Creatinine Ratio 8 (6-20) 6 (6-20) Glucose Level 125 mg/dL (70-99) 105 mg/dL (70-99) Calcium Level 8.8 mg/dL (8.5-10.1) 8.4 mg/dL (8.5-10.1) Total Bilirubin 0.3 mg/dL (0.2-1.0) 0.4 mg/dL (0.2-1.0) Aspartate Amino Transf (AST/SGOT) 13 U/L (15-37) 11 U/L (15-37) Alanine Aminotransferase (ALT/SGPT) 17 U/L (16-63) 14 U/L (16-63) Alkaline Phosphatase 68 U/L (46-116) 54 U/L (46-116) Total Protein 6.8 g/dL (6.4-8.2) 6.0 g/dL (6.4-8.2) Albumin 3.7 g/dL (3.4-5.0) 3.1 g/dL (3.4-5.0) Albumin/Globulin Ratio 1.2 (1.0-1.7) 1.1 (1.0-1.7) Lipase 78 U/L (73-393) Urine Opiates Screen Neg (NEG) Urine Methadone Screen Neg (NEG) Urine Barbiturates Neg (NEG) Urine Phencyclidine Screen Neg (NEG) Urine Amphetamine/Methamphetamine Neg (NEG) Urine Benzodiazepines Screen Neg (NEG) Urine Cocaine Screen Neg (NEG) Urine Cannabinoids Screen Neg (NEG) Ethyl Alcohol Level < 10 mg/dL (0-10) Urine Ethyl Alcohol Neg (NEG) Nasal Screen MRSA (PCR) Negative (Negative) Medications Current Medications Sodium Chloride 1,000 ml @ 1,000 mls/hr 1X ONCE IV Last administered on at 20:45; Start 12/06/17 at 20:45; Stop 12/06/17 at 21:44; Status DC Ondansetron HCl (Zofran) 4 mg 1X ONCE IV Last administered on 12/06/17at 20:45; Start 12/06/17 at 20:45; Stop 12/06/17 at 20:51; Status DC Morphine Sulfate (Morphine Sulfate) 5 mg 1X ONCE IV Last administered on at 20:45; Start 12/06/17 at 20:45; Stop 12/06/17 at 20:50; Status DC Iohexol (Omnipaque 300 Mg/ml) 75 ml 1X ONCE IV Last administered on 12/06/17at 21:11; Start 12/06/17 at 21:00; Stop 12/06/17 at 21:01; Status DC Info (CONTRAST GIVEN -- Rx MONITORING) 1 each PRN DAILY PRN MC SEE COMMENTS; Start 12/06/17 at 21:00; Stop 12/08/17 at 20:59 Morphine Sulfate (Morphine Sulfate) 5 mg 1X ONCE IV Last administered on at 22:15; Start 12/06/17 at 22:15; Stop 12/06/17 at 22:16; Status DC Ondansetron HCl (Zofran) 4 mg PRN Q8HRS PRN IV NAUSEA/VOMITING Last administered on 12/07/17at 17:18; Start 12/06/17 at 22:15; Stop 12/07/17 at 22:14 ; Status DC Morphine Sulfate (Morphine Sulfate) 4 mg PRN Q2HR PRN IV PAIN Last administered on 12/07/17at 08:48; Start 12/06/17 at 22:15; Stop 12/07/17 at 09:42 ; Status DC Sodium Chloride 1,000 ml @ 100 mls/hr 1X ONCE IV Last administered on at 00:41; Start 12/06/17 at 22:15; Stop 12/07/17 at 08:14; Status DC Pantoprazole Sodium (Protonix) 40 mg DAILYAC PO Last administered on 12/08/17at 08:32; Start 12/07/17 at 10:00 Morphine Sulfate (Ms Contin) 30 mg BID PO Last administered on 12/08/17at 08:32 ; Start 12/07/17 at 10:00 Non-Formulary Medication (Pantoprazole Sodium (Protonix)) 1 tab DAILY PO ; Start 12/08/17 at 09:00; Status UNV Quetiapine Fumarate (SEROquel) 100 mg QHS PO Last administered on 12/07/17at 20: 43; Start 12/07/17 at 21:00 Morphine Sulfate (Morphine Sulfate) 5 mg PRN Q2HR PRN IV PAIN Last administered on 12/08/17at 10:51; Start 12/07/17 at 09:45 Morphine Sulfate (Morphine Ir) 15 mg PRN Q4HRS PRN PO PAIN; Start 12/07/17 at 09:45 Sodium Chloride 1,000 ml @ 1,000 mls/hr 1X ONCE IV ; Start 12/07/17 at 10:00; Stop 12/07/17 at 10:59; Status DC Potassium Chloride/Dextrose/ Sod Cl 1,000 ml @ 125 mls/hr Q8H IV Last administered on 12/08/17at 05:26; Start 12/07/17 at 11:00 Clonazepam (KlonoPIN) 1 mg HS PO ; Start 12/08/17 at 21:00; Stop 12/08/17 at 21: 00; Status DC Clonazepam (KlonoPIN) 1 mg HS PO Last administered on 12/07/17at 21:54; Start at 21:45 Active Scripts Active Reported Protonix (Pantoprazole Sodium) 20 Mg Tablet.dr 1 Tab PO DAILY Oxycontin (Oxycodone HCl) 60 Mg Tab.er.12h 60 Mg PO QID Clonazepam 1 Mg Tablet 2 Mg PO HS Seroquel (Quetiapine Fumarate) 50 Mg Tablet 100 Mg PO HS Take one tablet by mouth twice a day, and take 2 tablets by mouth every night at bedtime. Vitals/I & O Vital Sign - Last 24 Hours 12/07/17 12/07/17 12/07/17 12/07/17 11:00 11:34 13:44 15:00 Temp 97.8 97.5 97.8 97.5 Pulse 68 49 Resp 16 16 B/P (MAP) 100/51 (67) 107/73 (84) Pulse Ox 98 98 98 100 O2 Delivery Room Air Room Air Room Air Room Air 12/07/17 12/07/17 12/07/17 12/07/17 15:12 15:13 16:15 18:20 Pulse Ox 98 98 98 98 O2 Delivery Room Air Room Air 12/07/17 12/07/17 12/07/17 12/07/17 19:42 20:00 20:43 20:43 Temp 97.9 97.9 Pulse 78 Resp 16 B/P (MAP) 102/52 (69) Pulse Ox 97 O2 Delivery Room Air Room Air Room Air Room Air 12/07/17 12/07/17 12/07/17 12/08/17 23:14 23:47 23:56 00:43 Temp 97.4 97.4 Pulse 43 50 Resp 16 B/P (MAP) 87/50 (62) 123/51 (75) Pulse Ox 97 O2 Delivery Room Air Room Air Room Air 12/08/17 12/08/17 12/08/17 12/08/17 03:01 04:36 07:45 08:32 Temp 97.5 97.7 97.5 97.7 Pulse 68 67 Resp 16 18 B/P (MAP) 93/63 (73) 90/56 (67) Pulse Ox 99 100 O2 Delivery Room Air Room Air Room Air Room Air 12/08/17 12/08/17 12/08/17 08:36 09:06 10:51 Resp 16 18 16 O2 Delivery Room Air Room Air Room Air Intake and Output 12/07/17 12/07/17 12/08/17 15:00 23:00 07:00 Intake Total 120 ml 540 ml 500 ml Balance 120 ml 540 ml 500 ml DAY WEAVER MD Dec 08, 2017 11:02
[2017-12-08 11:51] VITALS: BP 107/60
[2017-12-08] MEDS: MORPHINE IR 15 MG TABLET PO PRN ×3 (13:24→22:05)
[2017-12-08 15:32] VITALS: BP 106/65
[2017-12-08 19:58] VITALS: BP 107/62
[2017-12-08] MEDS: clonazePAM 1 MG TABLET PO SCH (20:52)
[2017-12-08] MEDS: QUEtiapine 100 MG TABLET. PO SCH (20:53)
[2017-12-08] MEDS ORDERED: clonazePAM 1 MG TABLET PO SCH (21:00)
[2017-12-09 03:13] VITALS: BP 92/52
[2017-12-09] MEDS: POTASSIUM CL 20MEQ D5-0.45NACL 1,000 ML IV SCH ×2 (06:19→11:00)
[2017-12-09 06:23] LABS: BASO % 1 % (0-3); EOS # 0.3 x10^3/uL (0.0-0.7); EOS % 7 % (0-3); HEMATOCRIT 34.6 % (39.0-53.0); HEMOGLOBIN 11.8 g/dL (13.0-17.5); LYMPH # 1.9 x10^3/uL (1.0-4.8); LYMPH % 45 % (24-48); MEAN CORPUSCULAR HEMOGLOBIN 32 pg (25-35); MEAN CORPUSCULAR HGB CONC 34 g/dL (31-37); MEAN CORPUSCULAR VOLUME 95 fL (79-100); MONO # 0.3 x10^3/uL (0.0-1.1); MONO % 7 % (0-9); NEUT # 1.7 x10^3uL (1.8-7.7); NEUT % 41 % (31-73); PLATELET COUNT 182 x10^3/uL (140-400); RED BLOOD COUNT 3.65 x10^6/uL (4.30-5.70); RED CELL DISTRIBUTION WIDTH 12.6 % (11.5-14.5); WHITE BLOOD COUNT 4.3 x10^3/uL (4.0-11.0)
[2017-12-09] MEDS: MORPHINE IR 15 MG TABLET PO PRN ×4 (06:34→19:30)
[2017-12-09 06:41] LABS: ALBUMIN 2.9 g/dL (3.4-5.0); CALCIUM 8.7 mg/dL (8.5-10.1); CREATININE 0.8 mg/dL (0.7-1.3); GFR 101.9; POTASSIUM 3.8 mmol/L (3.5-5.1); TOTAL BILIRUBIN 0.3 mg/dL (0.2-1.0); TOTAL PROTEIN 5.7 g/dL (6.4-8.2)
[2017-12-09 07:57] VITALS: BP 102/69
[2017-12-09] MEDS: PANTOPRAZOLE 40 MG TABLET.DR. PO SCH (09:32)
[2017-12-09] MEDS: MORPHINE ER 30 MG TABLET.ER PO SCH ×2 (09:33→21:02)
[2017-12-09 11:00] VITALS: BP 95/49
--- NOTE | 2017-12-09 15:01 | PDOC ---
PROGRESS NOTES Chief Complaint Chief Complaint acute on chronic abdominal pain nausea and pain without vomiting pancreatitis, acute on chronic diarrhea, and weight loss pancreatic stone - surgery offered in the past, declined GERD History of Present Illness History of Present Illness still complains of pain - better today, 12/07 tr pain meds and plan reviewed, try to limit IV pain meds, has eaten more today taper IV fluid if able may DC if able to eat better, pain lessens Vitals Vitals Vital Signs Date Time Temp Pulse Resp B/P (MAP) Pulse Ox O2 Delivery O2 Flow Rate FiO2 12/09/17 14:52 Room Air 12/09/17 11:00 97.7 52 18 95/49 (64) 95 97.7 Physical Exam General: Alert, Cooperative, mild distress Lungs: Clear, Other Abdomen: Other (tender) Extremities: No cyanosis, No edema Skin: No rashes, No significant lesion Labs LABS Laboratory Tests Test 12/09/17 05:30 White Blood Count 4.3 x10^3/uL (4.0-11.0) Red Blood Count 3.65 x10^6/uL (4.30-5.70) Hemoglobin 11.8 g/dL (13.0-17.5) Hematocrit 34.6 % (39.0-53.0) Mean Corpuscular Volume 95 fL (79-100) Mean Corpuscular Hemoglobin 32 pg (25-35) Mean Corpuscular Hemoglobin Concent 34 g/dL (31-37) Red Cell Distribution Width 12.6 % (11.5-14.5) Platelet Count 182 x10^3/uL (140-400) Neutrophils (%) (Auto) 41 % (31-73) Lymphocytes (%) (Auto) 45 % (24-48) Monocytes (%) (Auto) 7 % (0-9) Eosinophils (%) (Auto) 7 % (0-3) Basophils (%) (Auto) 1 % (0-3) Neutrophils # (Auto) 1.7 x10^3uL (1.8-7.7) Lymphocytes # (Auto) 1.9 x10^3/uL (1.0-4.8) Monocytes # (Auto) 0.3 x10^3/uL (0.0-1.1) Eosinophils # (Auto) 0.3 x10^3/uL (0.0-0.7) Basophils # (Auto) 0.0 x10^3/uL (0.0-0.2) Sodium Level 142 mmol/L (136-145) Potassium Level 3.8 mmol/L (3.5-5.1) Chloride Level 109 mmol/L (98-107) Carbon Dioxide Level 31 mmol/L (21-32) Anion Gap 2 (6-14) Blood Urea Nitrogen 2 mg/dL (8-26) Creatinine 0.8 mg/dL (0.7-1.3) Estimated GFR (Cockcroft-Gault) 101.9 BUN/Creatinine Ratio 3 (6-20) Glucose Level 136 mg/dL (70-99) Calcium Level 8.7 mg/dL (8.5-10.1) Total Bilirubin 0.3 mg/dL (0.2-1.0) Aspartate Amino Transf (AST/SGOT) 11 U/L (15-37) Alanine Aminotransferase (ALT/SGPT) 13 U/L (16-63) Alkaline Phosphatase 55 U/L (46-116) Total Protein 5.7 g/dL (6.4-8.2) Albumin 2.9 g/dL (3.4-5.0) Albumin/Globulin Ratio 1.0 (1.0-1.7) Assessment and Plan Assessmemt and Plan Problems Medical Problems: (1) Chronic pancreatitis Status: Acute (2) Diarrhea Status: Acute (3) Intractable abdominal pain Status: Acute (4) Nausea and vomiting Status: Acute Comment Review of Relevant I have reviewed the following items massiel (where applicable) has been applied. Labs Laboratory Tests Test 12/09/17 05:30 White Blood Count 4.3 x10^3/uL (4.0-11.0) Red Blood Count 3.65 x10^6/uL (4.30-5.70) Hemoglobin 11.8 g/dL (13.0-17.5) Hematocrit 34.6 % (39.0-53.0) Mean Corpuscular Volume 95 fL (79-100) Mean Corpuscular Hemoglobin 32 pg (25-35) Mean Corpuscular Hemoglobin Concent 34 g/dL (31-37) Red Cell Distribution Width 12.6 % (11.5-14.5) Platelet Count 182 x10^3/uL (140-400) Neutrophils (%) (Auto) 41 % (31-73) Lymphocytes (%) (Auto) 45 % (24-48) Monocytes (%) (Auto) 7 % (0-9) Eosinophils (%) (Auto) 7 % (0-3) Basophils (%) (Auto) 1 % (0-3) Neutrophils # (Auto) 1.7 x10^3uL (1.8-7.7) Lymphocytes # (Auto) 1.9 x10^3/uL (1.0-4.8) Monocytes # (Auto) 0.3 x10^3/uL (0.0-1.1) Eosinophils # (Auto) 0.3 x10^3/uL (0.0-0.7) Basophils # (Auto) 0.0 x10^3/uL (0.0-0.2) Sodium Level 142 mmol/L (136-145) Potassium Level 3.8 mmol/L (3.5-5.1) Chloride Level 109 mmol/L (98-107) Carbon Dioxide Level 31 mmol/L (21-32) Anion Gap 2 (6-14) Blood Urea Nitrogen 2 mg/dL (8-26) Creatinine 0.8 mg/dL (0.7-1.3) Estimated GFR (Cockcroft-Gault) 101.9 BUN/Creatinine Ratio 3 (6-20) Glucose Level 136 mg/dL (70-99) Calcium Level 8.7 mg/dL (8.5-10.1) Total Bilirubin 0.3 mg/dL (0.2-1.0) Aspartate Amino Transf (AST/SGOT) 11 U/L (15-37) Alanine Aminotransferase (ALT/SGPT) 13 U/L (16-63) Alkaline Phosphatase 55 U/L (46-116) Total Protein 5.7 g/dL (6.4-8.2) Albumin 2.9 g/dL (3.4-5.0) Albumin/Globulin Ratio 1.0 (1.0-1.7) Laboratory Tests Test 12/09/17 05:30 White Blood Count 4.3 x10^3/uL (4.0-11.0) Red Blood Count 3.65 x10^6/uL (4.30-5.70) Hemoglobin 11.8 g/dL (13.0-17.5) Hematocrit 34.6 % (39.0-53.0) Mean Corpuscular Volume 95 fL (79-100) Mean Corpuscular Hemoglobin 32 pg (25-35) Mean Corpuscular Hemoglobin Concent 34 g/dL (31-37) Red Cell Distribution Width 12.6 % (11.5-14.5) Platelet Count 182 x10^3/uL (140-400) Neutrophils (%) (Auto) 41 % (31-73) Lymphocytes (%) (Auto) 45 % (24-48) Monocytes (%) (Auto) 7 % (0-9) Eosinophils (%) (Auto) 7 % (0-3) Basophils (%) (Auto) 1 % (0-3) Neutrophils # (Auto) 1.7 x10^3uL (1.8-7.7) Lymphocytes # (Auto) 1.9 x10^3/uL (1.0-4.8) Monocytes # (Auto) 0.3 x10^3/uL (0.0-1.1) Eosinophils # (Auto) 0.3 x10^3/uL (0.0-0.7) Basophils # (Auto) 0.0 x10^3/uL (0.0-0.2) Sodium Level 142 mmol/L (136-145) Potassium Level 3.8 mmol/L (3.5-5.1) Chloride Level 109 mmol/L (98-107) Carbon Dioxide Level 31 mmol/L (21-32) Anion Gap 2 (6-14) Blood Urea Nitrogen 2 mg/dL (8-26) Creatinine 0.8 mg/dL (0.7-1.3) Estimated GFR (Cockcroft-Gault) 101.9 BUN/Creatinine Ratio 3 (6-20) Glucose Level 136 mg/dL (70-99) Calcium Level 8.7 mg/dL (8.5-10.1) Total Bilirubin 0.3 mg/dL (0.2-1.0) Aspartate Amino Transf (AST/SGOT) 11 U/L (15-37) Alanine Aminotransferase (ALT/SGPT) 13 U/L (16-63) Alkaline Phosphatase 55 U/L (46-116) Total Protein 5.7 g/dL (6.4-8.2) Albumin 2.9 g/dL (3.4-5.0) Albumin/Globulin Ratio 1.0 (1.0-1.7) Medications Current Medications Sodium Chloride 1,000 ml @ 1,000 mls/hr 1X ONCE IV Last administered on at 20:45; Start 12/06/17 at 20:45; Stop 12/06/17 at 21:44; Status DC Ondansetron HCl (Zofran) 4 mg 1X ONCE IV Last administered on 12/06/17at 20:45; Start 12/06/17 at 20:45; Stop 12/06/17 at 20:51; Status DC Morphine Sulfate (Morphine Sulfate) 5 mg 1X ONCE IV Last administered on at 20:45; Start 12/06/17 at 20:45; Stop 12/06/17 at 20:50; Status DC Iohexol (Omnipaque 300 Mg/ml) 75 ml 1X ONCE IV Last administered on 12/06/17at 21:11; Start 12/06/17 at 21:00; Stop 12/06/17 at 21:01; Status DC Info (CONTRAST GIVEN -- Rx MONITORING) 1 each PRN DAILY PRN MC SEE COMMENTS; Start 12/06/17 at 21:00; Stop 12/08/17 at 20:59; Status DC Morphine Sulfate (Morphine Sulfate) 5 mg 1X ONCE IV Last administered on at 22:15; Start 12/06/17 at 22:15; Stop 12/06/17 at 22:16; Status DC Ondansetron HCl (Zofran) 4 mg PRN Q8HRS PRN IV NAUSEA/VOMITING Last administered on 12/07/17at 17:18; Start 12/06/17 at 22:15; Stop 12/07/17 at 22:14 ; Status DC Morphine Sulfate (Morphine Sulfate) 4 mg PRN Q2HR PRN IV PAIN Last administered on 12/07/17at 08:48; Start 12/06/17 at 22:15; Stop 12/07/17 at 09:42 ; Status DC Sodium Chloride 1,000 ml @ 100 mls/hr 1X ONCE IV Last administered on at 00:41; Start 12/06/17 at 22:15; Stop 12/07/17 at 08:14; Status DC Pantoprazole Sodium (Protonix) 40 mg DAILYAC PO Last administered on 12/09/17 09:32; Start 12/07/17 at 10:00 Morphine Sulfate (Ms Contin) 30 mg BID PO Last administered on 12/09/17at 09:33 ; Start 12/07/17 at 10:00 Non-Formulary Medication (Pantoprazole Sodium (Protonix)) 1 tab DAILY PO ; Start 12/08/17 at 09:00; Status UNV Quetiapine Fumarate (SEROquel) 100 mg QHS PO Last administered on 12/08/17at 20: 53; Start 12/07/17 at 21:00 Morphine Sulfate (Morphine Sulfate) 5 mg PRN Q2HR PRN IV PAIN Last administered on 12/08/17at 10:51; Start 12/07/17 at 09:45 Morphine Sulfate (Morphine Ir) 15 mg PRN Q4HRS PRN PO PAIN Last administered on 12/09/17at 14:52; Start 12/07/17 at 09:45 Sodium Chloride 1,000 ml @ 1,000 mls/hr 1X ONCE IV ; Start 12/07/17 at 10:00; Stop 12/07/17 at 10:59; Status DC Potassium Chloride/Dextrose/ Sod Cl 1,000 ml @ 125 mls/hr Q8H IV Last administered on 12/09/17at 06:19; Start 12/07/17 at 11:00 Clonazepam (KlonoPIN) 1 mg HS PO ; Start 12/08/17 at 21:00; Stop 12/08/17 at 21: 00; Status DC Clonazepam (KlonoPIN) 1 mg HS PO Last administered on 12/08/17at 20:52; Start at 21:45 Active Scripts Active Reported Protonix (Pantoprazole Sodium) 20 Mg Tablet.dr 1 Tab PO DAILY Oxycontin (Oxycodone HCl) 60 Mg Tab.er.12h 60 Mg PO QID Clonazepam 1 Mg Tablet 2 Mg PO HS Seroquel (Quetiapine Fumarate) 50 Mg Tablet 100 Mg PO HS Take one tablet by mouth twice a day, and take 2 tablets by mouth every night at bedtime. Vitals/I & O Vital Sign - Last 24 Hours 12/08/17 12/08/17 12/08/17 12/08/17 15:32 17:42 19:58 23:58 Temp 98.7 97.9 98.7 97.9 Pulse 75 50 Resp 18 17 20 16 B/P (MAP) 106/65 (79) 107/62 (77) Pulse Ox 98 99 O2 Delivery Room Air Room Air Room Air Room Air 12/09/17 12/09/17 12/09/17 12/09/17 03:13 07:57 08:00 09:33 Temp 96.8 97.9 96.8 97.9 Pulse 48 80 Resp 16 16 B/P (MAP) 92/52 (65) 102/69 (80) Pulse Ox 96 96 O2 Delivery Room Air Room Air Room Air Room Air 12/09/17 12/09/17 12/09/17 12/09/17 10:57 11:00 11:57 13:33 Temp 97.7 97.7 Pulse 52 Resp 18 18 B/P (MAP) 95/49 (64) Pulse Ox 95 O2 Delivery Room Air Room Air Room Air Room Air 12/09/17 14:52 O2 Delivery Room Air Intake and Output 12/08/17 12/08/17 12/09/17 15:00 23:00 07:00 Intake Total 1200 ml 2010 ml Balance 1200 ml 2010 ml DAY WEAVER MD Dec 09, 2017 15:01
[2017-12-09 15:54] VITALS: BP 100/57
[2017-12-09 19:58] VITALS: BP 111/54
[2017-12-09] MEDS: QUEtiapine 100 MG TABLET. PO SCH (21:01)
[2017-12-09] MEDS: clonazePAM 1 MG TABLET PO SCH (21:01)
[2017-12-09 23:09] VITALS: BP 103/61
[2017-12-10 03:20] VITALS: BP 98/51
[2017-12-10 03:56] LABS: BASO % 1 % (0-3); EOS # 0.5 x10^3/uL (0.0-0.7); EOS % 9 % (0-3); HEMATOCRIT 35.2 % (39.0-53.0); HEMOGLOBIN 12.3 g/dL (13.0-17.5); LYMPH # 1.9 x10^3/uL (1.0-4.8); LYMPH % 40 % (24-48); MEAN CORPUSCULAR HEMOGLOBIN 33 pg (25-35); MEAN CORPUSCULAR HGB CONC 35 g/dL (31-37); MEAN CORPUSCULAR VOLUME 95 fL (79-100); MONO # 0.3 x10^3/uL (0.0-1.1); MONO % 6 % (0-9); NEUT # 2.1 x10^3uL (1.8-7.7); NEUT % 43 % (31-73); PLATELET COUNT 187 x10^3/uL (140-400); RED BLOOD COUNT 3.71 x10^6/uL (4.30-5.70); RED CELL DISTRIBUTION WIDTH 12.5 % (11.5-14.5); WHITE BLOOD COUNT 4.9 x10^3/uL (4.0-11.0)
[2017-12-10 04:07] LABS: CALCIUM 8.6 mg/dL (8.5-10.1); CREATININE 0.9 mg/dL (0.7-1.3); POTASSIUM 4.2 mmol/L (3.5-5.1); TOTAL BILIRUBIN 0.2 mg/dL (0.2-1.0)
[2017-12-10] MEDS: MORPHINE IR 15 MG TABLET PO PRN ×4 (06:40→18:47)
[2017-12-10 07:13] VITALS: BP 108/66
[2017-12-10] MEDS: PANTOPRAZOLE 40 MG TABLET.DR. PO SCH (08:34)
[2017-12-10] MEDS: MORPHINE ER 30 MG TABLET.ER PO SCH ×2 (08:34→21:13)
--- NOTE | 2017-12-10 09:23 | PDOC ---
PROGRESS NOTES Chief Complaint Chief Complaint acute on chronic abdominal pain, states pain not much better today nausea and pain without vomiting pancreatitis, acute on chronic diarrhea, and weight loss pancreatic stone - surgery offered in the past, declined GERD remote etoh abuse History of Present Illness History of Present Illness still complains of pain - better today, 12/07 tr pain meds and plan reviewed, try to limit IV pain meds, has eaten more today taper IV fluid if able may DC if able to eat better, pain lessens Vitals Vitals Vital Signs Date Time Temp Pulse Resp B/P (MAP) Pulse Ox O2 Delivery O2 Flow Rate FiO2 12/10/17 08:35 Room Air 12/10/17 07:13 98.1 75 18 108/66 (80) 99 98.1 Physical Exam General: Alert, Oriented X3, Cooperative, mild distress, moderate distress Heart: Regular rate Lungs: Clear, Other Abdomen: Other (tender) Extremities: No cyanosis, No edema Skin: No rashes, No significant lesion Labs LABS Laboratory Tests Test 12/10/17 03:05 White Blood Count 4.9 x10^3/uL (4.0-11.0) Red Blood Count 3.71 x10^6/uL (4.30-5.70) Hemoglobin 12.3 g/dL (13.0-17.5) Hematocrit 35.2 % (39.0-53.0) Mean Corpuscular Volume 95 fL (79-100) Mean Corpuscular Hemoglobin 33 pg (25-35) Mean Corpuscular Hemoglobin Concent 35 g/dL (31-37) Red Cell Distribution Width 12.5 % (11.5-14.5) Platelet Count 187 x10^3/uL (140-400) Neutrophils (%) (Auto) 43 % (31-73) Lymphocytes (%) (Auto) 40 % (24-48) Monocytes (%) (Auto) 6 % (0-9) Eosinophils (%) (Auto) 9 % (0-3) Basophils (%) (Auto) 1 % (0-3) Neutrophils # (Auto) 2.1 x10^3uL (1.8-7.7) Lymphocytes # (Auto) 1.9 x10^3/uL (1.0-4.8) Monocytes # (Auto) 0.3 x10^3/uL (0.0-1.1) Eosinophils # (Auto) 0.5 x10^3/uL (0.0-0.7) Basophils # (Auto) 0.0 x10^3/uL (0.0-0.2) Sodium Level 142 mmol/L (136-145) Potassium Level 4.2 mmol/L (3.5-5.1) Chloride Level 109 mmol/L (98-107) Carbon Dioxide Level 32 mmol/L (21-32) Anion Gap 1 (6-14) Blood Urea Nitrogen 3 mg/dL (8-26) Creatinine 0.9 mg/dL (0.7-1.3) Estimated GFR (Cockcroft-Gault) 89.0 BUN/Creatinine Ratio 3 (6-20) Glucose Level 104 mg/dL (70-99) Calcium Level 8.6 mg/dL (8.5-10.1) Total Bilirubin 0.2 mg/dL (0.2-1.0) Aspartate Amino Transf (AST/SGOT) 14 U/L (15-37) Alanine Aminotransferase (ALT/SGPT) 14 U/L (16-63) Alkaline Phosphatase 58 U/L (46-116) Total Protein 6.0 g/dL (6.4-8.2) Albumin 3.0 g/dL (3.4-5.0) Albumin/Globulin Ratio 1.0 (1.0-1.7) Assessment and Plan Assessmemt and Plan Problems Medical Problems: (1) Chronic pancreatitis Status: Acute (2) Diarrhea Status: Acute (3) Intractable abdominal pain Status: Acute (4) Nausea and vomiting Status: Acute Comment Review of Relevant I have reviewed the following items massiel (where applicable) has been applied. Labs Laboratory Tests Test 12/09/17 05:30 12/10/17 03:05 White Blood Count 4.3 x10^3/uL (4.0-11.0) 4.9 x10^3/uL (4.0-11.0) Red Blood Count 3.65 x10^6/uL (4.30-5.70) 3.71 x10^6/uL (4.30-5.70) Hemoglobin 11.8 g/dL (13.0-17.5) 12.3 g/dL (13.0-17.5) Hematocrit 34.6 % (39.0-53.0) 35.2 % (39.0-53.0) Mean Corpuscular Volume 95 fL (79-100) 95 fL (79-100) Mean Corpuscular Hemoglobin 32 pg (25-35) 33 pg (25-35) Mean Corpuscular Hemoglobin Concent 34 g/dL (31-37) 35 g/dL (31-37) Red Cell Distribution Width 12.6 % (11.5-14.5) 12.5 % (11.5-14.5) Platelet Count 182 x10^3/uL (140-400) 187 x10^3/uL (140-400) Neutrophils (%) (Auto) 41 % (31-73) 43 % (31-73) Lymphocytes (%) (Auto) 45 % (24-48) 40 % (24-48) Monocytes (%) (Auto) 7 % (0-9) 6 % (0-9) Eosinophils (%) (Auto) 7 % (0-3) 9 % (0-3) Basophils (%) (Auto) 1 % (0-3) 1 % (0-3) Neutrophils # (Auto) 1.7 x10^3uL (1.8-7.7) 2.1 x10^3uL (1.8-7.7) Lymphocytes # (Auto) 1.9 x10^3/uL (1.0-4.8) 1.9 x10^3/uL (1.0-4.8) Monocytes # (Auto) 0.3 x10^3/uL (0.0-1.1) 0.3 x10^3/uL (0.0-1.1) Eosinophils # (Auto) 0.3 x10^3/uL (0.0-0.7) 0.5 x10^3/uL (0.0-0.7) Basophils # (Auto) 0.0 x10^3/uL (0.0-0.2) 0.0 x10^3/uL (0.0-0.2) Sodium Level 142 mmol/L (136-145) 142 mmol/L (136-145) Potassium Level 3.8 mmol/L (3.5-5.1) 4.2 mmol/L (3.5-5.1) Chloride Level 109 mmol/L (98-107) 109 mmol/L (98-107) Carbon Dioxide Level 31 mmol/L (21-32) 32 mmol/L (21-32) Anion Gap 2 (6-14) 1 (6-14) Blood Urea Nitrogen 2 mg/dL (8-26) 3 mg/dL (8-26) Creatinine 0.8 mg/dL (0.7-1.3) 0.9 mg/dL (0.7-1.3) Estimated GFR (Cockcroft-Gault) 101.9 89.0 BUN/Creatinine Ratio 3 (6-20) 3 (6-20) Glucose Level 136 mg/dL (70-99) 104 mg/dL (70-99) Calcium Level 8.7 mg/dL (8.5-10.1) 8.6 mg/dL (8.5-10.1) Total Bilirubin 0.3 mg/dL (0.2-1.0) 0.2 mg/dL (0.2-1.0) Aspartate Amino Transf (AST/SGOT) 11 U/L (15-37) 14 U/L (15-37) Alanine Aminotransferase (ALT/SGPT) 13 U/L (16-63) 14 U/L (16-63) Alkaline Phosphatase 55 U/L (46-116) 58 U/L (46-116) Total Protein 5.7 g/dL (6.4-8.2) 6.0 g/dL (6.4-8.2) Albumin 2.9 g/dL (3.4-5.0) 3.0 g/dL (3.4-5.0) Albumin/Globulin Ratio 1.0 (1.0-1.7) 1.0 (1.0-1.7) Laboratory Tests Test 12/10/17 03:05 White Blood Count 4.9 x10^3/uL (4.0-11.0) Red Blood Count 3.71 x10^6/uL (4.30-5.70) Hemoglobin 12.3 g/dL (13.0-17.5) Hematocrit 35.2 % (39.0-53.0) Mean Corpuscular Volume 95 fL (79-100) Mean Corpuscular Hemoglobin 33 pg (25-35) Mean Corpuscular Hemoglobin Concent 35 g/dL (31-37) Red Cell Distribution Width 12.5 % (11.5-14.5) Platelet Count 187 x10^3/uL (140-400) Neutrophils (%) (Auto) 43 % (31-73) Lymphocytes (%) (Auto) 40 % (24-48) Monocytes (%) (Auto) 6 % (0-9) Eosinophils (%) (Auto) 9 % (0-3) Basophils (%) (Auto) 1 % (0-3) Neutrophils # (Auto) 2.1 x10^3uL (1.8-7.7) Lymphocytes # (Auto) 1.9 x10^3/uL (1.0-4.8) Monocytes # (Auto) 0.3 x10^3/uL (0.0-1.1) Eosinophils # (Auto) 0.5 x10^3/uL (0.0-0.7) Basophils # (Auto) 0.0 x10^3/uL (0.0-0.2) Sodium Level 142 mmol/L (136-145) Potassium Level 4.2 mmol/L (3.5-5.1) Chloride Level 109 mmol/L (98-107) Carbon Dioxide Level 32 mmol/L (21-32) Anion Gap 1 (6-14) Blood Urea Nitrogen 3 mg/dL (8-26) Creatinine 0.9 mg/dL (0.7-1.3) Estimated GFR (Cockcroft-Gault) 89.0 BUN/Creatinine Ratio 3 (6-20) Glucose Level 104 mg/dL (70-99) Calcium Level 8.6 mg/dL (8.5-10.1) Total Bilirubin 0.2 mg/dL (0.2-1.0) Aspartate Amino Transf (AST/SGOT) 14 U/L (15-37) Alanine Aminotransferase (ALT/SGPT) 14 U/L (16-63) Alkaline Phosphatase 58 U/L (46-116) Total Protein 6.0 g/dL (6.4-8.2) Albumin 3.0 g/dL (3.4-5.0) Albumin/Globulin Ratio 1.0 (1.0-1.7) Medications Current Medications Sodium Chloride 1,000 ml @ 1,000 mls/hr 1X ONCE IV Last administered on 20:45; Start 12/06/17 at 20:45; Stop 12/06/17 at 21:44; Status DC Ondansetron HCl (Zofran) 4 mg 1X ONCE IV Last administered on 12/06/17at 20:45; Start 12/06/17 at 20:45; Stop 12/06/17 at 20:51; Status DC Morphine Sulfate (Morphine Sulfate) 5 mg 1X ONCE IV Last administered on at 20:45; Start 12/06/17 at 20:45; Stop 12/06/17 at 20:50; Status DC Iohexol (Omnipaque 300 Mg/ml) 75 ml 1X ONCE IV Last administered on 12/06/17at 21:11; Start 12/06/17 at 21:00; Stop 12/06/17 at 21:01; Status DC Info (CONTRAST GIVEN -- Rx MONITORING) 1 each PRN DAILY PRN MC SEE COMMENTS; Start 12/06/17 at 21:00; Stop 12/08/17 at 20:59; Status DC Morphine Sulfate (Morphine Sulfate) 5 mg 1X ONCE IV Last administered on at 22:15; Start 12/06/17 at 22:15; Stop 12/06/17 at 22:16; Status DC Ondansetron HCl (Zofran) 4 mg PRN Q8HRS PRN IV NAUSEA/VOMITING Last administered on 12/07/17at 17:18; Start 12/06/17 at 22:15; Stop 12/07/17 at 22:14 ; Status DC Morphine Sulfate (Morphine Sulfate) 4 mg PRN Q2HR PRN IV PAIN Last administered on 12/07/17at 08:48; Start 12/06/17 at 22:15; Stop 12/07/17 at 09:42 ; Status DC Sodium Chloride 1,000 ml @ 100 mls/hr 1X ONCE IV Last administered on at 00:41; Start 12/06/17 at 22:15; Stop 12/07/17 at 08:14; Status DC Pantoprazole Sodium (Protonix) 40 mg DAILYAC PO Last administered on 12/10/17at 08:34; Start 12/07/17 at 10:00 Morphine Sulfate (Ms Contin) 30 mg BID PO Last administered on 12/10/17at 08:34 ; Start 12/07/17 at 10:00 Non-Formulary Medication (Pantoprazole Sodium (Protonix)) 1 tab DAILY PO ; Start 12/08/17 at 09:00; Status UNV Quetiapine Fumarate (SEROquel) 100 mg QHS PO Last administered on 12/09/17at 21: 01; Start 12/07/17 at 21:00 Morphine Sulfate (Morphine Sulfate) 5 mg PRN Q2HR PRN IV PAIN Last administered on 12/08/17at 10:51; Start 12/07/17 at 09:45 Morphine Sulfate (Morphine Ir) 15 mg PRN Q4HRS PRN PO PAIN Last administered on 12/10/17at 06:40; Start 12/07/17 at 09:45 Sodium Chloride 1,000 ml @ 1,000 mls/hr 1X ONCE IV ; Start 12/07/17 at 10:00; Stop 12/07/17 at 10:59; Status DC Potassium Chloride/Dextrose/ Sod Cl 1,000 ml @ 125 mls/hr Q8H IV Last administered on 12/09/17at 06:19; Start 12/07/17 at 11:00; Stop 12/09/17 at 15:29 ; Status DC Clonazepam (KlonoPIN) 1 mg HS PO ; Start 12/08/17 at 21:00; Stop 12/08/17 at 21: 00; Status DC Clonazepam (KlonoPIN) 1 mg HS PO Last administered on 12/09/17at 21:01; Start at 21:45 Active Scripts Active Reported Protonix (Pantoprazole Sodium) 20 Mg Tablet.dr 1 Tab PO DAILY Oxycontin (Oxycodone HCl) 60 Mg Tab.er.12h 60 Mg PO QID Clonazepam 1 Mg Tablet 2 Mg PO HS Seroquel (Quetiapine Fumarate) 50 Mg Tablet 100 Mg PO HS Take one tablet by mouth twice a day, and take 2 tablets by mouth every night at bedtime. Vitals/I & O Vital Sign - Last 24 Hours 12/09/17 12/09/17 12/09/17 12/09/17 09:33 10:57 11:00 13:33 Temp 97.7 97.7 Pulse 52 Resp 18 18 B/P (MAP) 95/49 (64) Pulse Ox 95 O2 Delivery Room Air Room Air Room Air Room Air 12/09/17 12/09/17 12/09/17 12/09/17 14:52 15:54 19:58 20:05 Temp 98.1 97.5 98.1 97.5 Pulse 54 57 Resp 18 20 B/P (MAP) 100/57 (71) 111/54 (73) Pulse Ox 97 99 O2 Delivery Room Air Room Air Room Air Room Air 12/09/17 12/10/17 12/10/17 12/10/17 23:09 03:20 07:13 08:34 Temp 98.1 97.4 98.1 98.1 97.4 98.1 Pulse 64 60 75 Resp 18 18 18 B/P (MAP) 103/61 (75) 98/51 (67) 108/66 (80) Pulse Ox 95 97 99 O2 Delivery Room Air Room Air Room Air Room Air 12/10/17 08:35 O2 Delivery Room Air Intake and Output 12/09/17 12/09/17 12/10/17 15:00 23:00 07:00 Intake Total 500 ml 710 ml Balance 500 ml 710 ml BRANDON ESTEBAN MD Dec 10, 2017 09:23
[2017-12-10 11:00] VITALS: BP 109/66
--- NOTE | 2017-12-10 11:21 | PDOC ---
Subjective: Subjective: Tolerating GI soft diet - nausea after eating w/o vomiting, ongoing abd pain ( but better since admission). Wants to go home today - has a class at 5:00 p.m. and needs to do his homework first. Objective: Vital Signs: Vital Signs Date Time Temp Pulse Resp B/P (MAP) Pulse Ox O2 Delivery O2 Flow Rate FiO2 12/10/17 10:43 Room Air 12/10/17 07:13 98.1 75 18 108/66 (80) 99 98.1 Labs: Laboratory Tests Test 12/10/17 03:05 White Blood Count 4.9 x10^3/uL Red Blood Count 3.71 x10^6/uL Hemoglobin 12.3 g/dL Hematocrit 35.2 % Mean Corpuscular Volume 95 fL Mean Corpuscular Hemoglobin 33 pg Mean Corpuscular Hemoglobin Concent 35 g/dL Red Cell Distribution Width 12.5 % Platelet Count 187 x10^3/uL Neutrophils (%) (Auto) 43 % Lymphocytes (%) (Auto) 40 % Monocytes (%) (Auto) 6 % Eosinophils (%) (Auto) 9 % Basophils (%) (Auto) 1 % Neutrophils # (Auto) 2.1 x10^3uL Lymphocytes # (Auto) 1.9 x10^3/uL Monocytes # (Auto) 0.3 x10^3/uL Eosinophils # (Auto) 0.5 x10^3/uL Basophils # (Auto) 0.0 x10^3/uL Sodium Level 142 mmol/L Potassium Level 4.2 mmol/L Chloride Level 109 mmol/L Carbon Dioxide Level 32 mmol/L Anion Gap 1 Blood Urea Nitrogen 3 mg/dL Creatinine 0.9 mg/dL Estimated GFR (Cockcroft-Gault) 89.0 BUN/Creatinine Ratio 3 Glucose Level 104 mg/dL Calcium Level 8.6 mg/dL Total Bilirubin 0.2 mg/dL Aspartate Amino Transf (AST/SGOT) 14 U/L Alanine Aminotransferase (ALT/SGPT) 14 U/L Alkaline Phosphatase 58 U/L Total Protein 6.0 g/dL Albumin 3.0 g/dL Albumin/Globulin Ratio 1.0 PE: GEN: NAD LUNGS: CTAB HEART: RRR ABD: NABS, soft, less tender NEURO/PSYCH: A & O 3, more pleasant today A/P: Chronic pancreatitis w/ pancreatic stone Chronic abd pain N/v - resolved -- Chronic issues, now tolerating PO. DC per primary, follow-up w/ [facility] for second surgical opinion as previously planned. SHAJI RIBERA Dec 10, 2017 11:20
[2017-12-10 15:00] VITALS: BP 104/66
[2017-12-10 19:51] VITALS: BP 107/69
[2017-12-10] MEDS: clonazePAM 1 MG TABLET PO SCH (21:13)
[2017-12-10] MEDS: QUEtiapine 100 MG TABLET. PO SCH (21:13)
== END 2017-12-10 23:12 | disposition left against medical advice (07) | DRG 440 ==
LOC: ER 20:06 → 6 SOUTH 22:07
PROVIDERS: ADMIT Family Medicine; ATTEND Family Medicine
DX: K85.90 Acute pancreatitis without necrosis or infection, unspecified (principal); F32.9 Major depressive disorder, single episode, unspecified; G89.29 Other chronic pain; K86.1 Other chronic pancreatitis; F41.9 Anxiety disorder, unspecified; K21.9 Gastro-esophageal reflux disease without esophagitis; Z98.1 Arthrodesis status; Z88.6 Allergy status to analgesic agent; Z88.0 Allergy status to penicillin; Z88.2 Allergy status to sulfonamides; Z53.21 Procedure and treatment not carried out due to patient leaving prior to being seen by health care provider
CPT/HCPCS: 36415; 74177; 80053; 80307; 81001; 83690; 85025; 85651; 87641; 96361; 96374; G0480; J2270; J2405; J7030; Q9967; 99285-25; G0479

== ENCOUNTER 2018-09-03 21:18 | Emergency (ER) | payer SELFPAY ==
[~2018-09-03] VITALS: Ht 177.8 cm; Wt 63.5 kg
[~2018-09-03 21:18] MED LIST changes: +CLON1TAB11 PO; -CLON1TAB4 PO; -OXYC-328 PO; +OXYC1TAB22 PO; +OXYC20TA PO; +OXYC60TA7 PO; +PANT20TA2 PO; +QUET100T4 PO
[2018-09-03] MEDS ORDERED: ONDANSETRON PF 4 MG/2 ML VIAL. IM ONE (22:00)
[2018-09-03] MEDS ORDERED: ONDANSETRON PF 4 MG/2 ML VIAL. IV ONE (22:00)
[2018-09-03] MEDS ORDERED: IV NORMAL SALINE 1000ML BAG 1,000 ML IV ONE (22:00)
[2018-09-03] MEDS ORDERED: MORPHINE SULFATE 2 MG/ML VIAL. IV ONE ×2 (22:00→22:45)
--- NOTE | 2018-09-03 22:01 | PHYS DOC ---
Past Medical History Past Medical History: Anxiety, Depression, Diverticulitis, Pancreatitis, Other Additional Past Medical Histor: CHRONIC BACK PAIN, PTSD (LOWELL BLUE APRN) Past Surgical History: Other Additional Past Surgical Histo: SPINAL FUSION, HERNIA X 2, L ANKLE SX (LOWELL BLUE APRN) Alcohol Use: Sober Drug Use: None (LOWELL BLUE APRN) Adult General Chief Complaint Chief Complaint: ABDOMINAL PAIN HPI HPI Patient is a 53 year old male who presents with [upper abdominal pain for the last 5-6 days. Reports he doesn't history of pancreatitis. Last flareup was approximately 3 years ago. Reports his prior flares workup due to alcohol use reports he has also been sober for the last 3 years. Does report some nausea and vomiting today. Reports pain is constant pressure. States he has not taken any medicine for this. (LOWELL BLUE APRN) Review of Systems Review of Systems Constitutional: Denies fever or chills [] Respiratory: Denies cough or shortness of breath [] Cardiovascular: No additional information not addressed in HPI [] GI: Complains of abdominal pain, nausea, vomiting, denies bloody stools or diarrhea [] : Denies dysuria or hematuria [] Musculoskeletal: Denies back pain or joint pain [] Integument: Denies rash or skin lesions [] Neurologic: Denies headache, focal weakness or sensory changes [] Endocrine: Denies polyuria or polydipsia [] All other systems were reviewed and found to be within normal limits, except as documented in this note. (LOWELL BLUE APRN) Current Medications Current Medications Current Medications Medications (Trade) Dose Ordered Sig/Ni Start Time Stop Time Status Last Admin Dose Admin Info (CONTRAST GIVEN -- Rx MONITORING) 1 each PRN DAILY PRN 09/03/18 23:00 09/03/18 23:54 DC Iohexol (Omnipaque 300 Mg/ml) 75 ml 1X ONCE 09/03/18 23:00 09/03/18 23:01 DC 09/03/18 22:57 75 ML Morphine Sulfate (Morphine Sulfate) 2 mg 1X ONCE 09/03/18 22:45 09/03/18 22:46 DC 09/03/18 22:48 2 MG Ondansetron HCl (Zofran) 4 mg 1X ONCE 09/03/18 22:00 09/03/18 22:23 DC 09/03/18 22:10 4 MG Sodium Chloride 1,000 ml @ 1,000 mls/hr 1X ONCE 09/03/18 22:00 09/03/18 22:59 DC 09/03/18 22:08 1,000 MLS/HR (AMADOU DRIVER DO) Allergies Allergies Allergies Coded Allergies Type Severity Reaction Last Updated Verified Penicillins Allergy Severe Anaphylaxis 02/07/15 Yes sulfamethoxazole Allergy Severe Anaphylaxis 02/07/15 Yes trimethoprim Allergy Severe Anaphylaxis 02/07/15 Yes acetaminophen Allergy Intermediate R/T PANCREATITIS 01/03/17 Yes (AMADOU DRIVER DO) Physical Exam Physical Exam Constitutional: Well developed, no acute distress, non-toxic appearance. [] HENT: Normocephalic, atraumatic, bilateral external ears normal, oropharynx moist, no oral exudates, nose normal. [] Eyes: PERRLA, EOMI, conjunctiva normal, no discharge. [] Neck: Normal range of motion, no tenderness, supple, no stridor. [] Cardiovascular:Heart rate regular rhythm, no murmur [] Lungs & Thorax: Bilateral breath sounds clear to auscultation [] Abdomen: Bowel sounds normal, soft, epiagastric tenderness, no masses, no pulsatile masses. [] Skin: Warm, dry, no erythema, no rash. [] Back: No tenderness, no CVA tenderness. [] Extremities: No tenderness, no cyanosis, no clubbing, ROM intact, no edema. [] Neurologic: Alert and oriented X 3, normal motor function, normal sensory function, no focal deficits noted. [] Psychologic: Affect normal, judgement normal, mood normal. [] (LOWELL BLUE APRN) Current Patient Data Vital Signs Vital Signs Date Time Temp Pulse Resp B/P (MAP) Pulse Ox O2 Delivery O2 Flow Rate FiO2 09/03/18 23:47 71 18 106/61 (76) 99 Room Air 09/03/18 21:20 97.7 97.7 (AMADOU DRIVER DO) Lab Values Laboratory Tests Test 09/03/18 21:38 09/03/18 21:46 Urine Collection Type Unknown Urine Color Yellow Urine Clarity Clear Urine pH 6.5 Urine Specific [place] <=1.005 Urine Protein Negative mg/dL (NEG-TRACE) Urine Glucose (UA) Negative mg/dL (NEG) Urine Ketones (Stick) Negative mg/dL (NEG) Urine Blood Negative (NEG) Urine Nitrite Negative (NEG) Urine Bilirubin Negative (NEG) Urine Urobilinogen Dipstick 0.2 mg/dL (0.2 mg/dL) Urine Leukocyte Esterase Negative (NEG) Urine RBC 0 /HPF (0-2) Urine WBC 0 /HPF (0-4) Urine Squamous Epithelial Cells Occ /LPF Urine Bacteria 0 /HPF (0-FEW) Urine Opiates Screen Neg (NEG) Urine Methadone Screen Neg (NEG) Urine Barbiturates Neg (NEG) Urine Phencyclidine Screen Neg (NEG) Urine Amphetamine/Methamphetamine Neg (NEG) Urine Benzodiazepines Screen Neg (NEG) Urine Cocaine Screen Neg (NEG) Urine Cannabinoids Screen Neg (NEG) Urine Ethyl Alcohol Neg (NEG) White Blood Count 6.3 x10^3/uL (4.0-11.0) Red Blood Count 4.34 x10^6/uL (4.30-5.70) Hemoglobin 13.4 g/dL (13.0-17.5) Hematocrit 41.2 % (39.0-53.0) Mean Corpuscular Volume 95 fL (79-100) Mean Corpuscular Hemoglobin 31 pg (25-35) Mean Corpuscular Hemoglobin Concent 33 g/dL (31-37) Red Cell Distribution Width 14.2 % (11.5-14.5) Platelet Count 212 x10^3/uL (140-400) Neutrophils (%) (Auto) 50 % (31-73) Lymphocytes (%) (Auto) 39 % (24-48) Monocytes (%) (Auto) 5 % (0-9) Eosinophils (%) (Auto) 4 % (0-3) H Basophils (%) (Auto) 1 % (0-3) Neutrophils # (Auto) 3.2 x10^3uL (1.8-7.7) Lymphocytes # (Auto) 2.5 x10^3/uL (1.0-4.8) Monocytes # (Auto) 0.3 x10^3/uL (0.0-1.1) Eosinophils # (Auto) 0.3 x10^3/uL (0.0-0.7) Basophils # (Auto) 0.1 x10^3/uL (0.0-0.2) Sodium Level 142 mmol/L (136-145) Potassium Level 4.1 mmol/L (3.5-5.1) Chloride Level 103 mmol/L (98-107) Carbon Dioxide Level 33 mmol/L (21-32) H Anion Gap 6 (6-14) Blood Urea Nitrogen 6 mg/dL (8-26) L Creatinine 0.8 mg/dL (0.7-1.3) Estimated GFR (Cockcroft-Gault) 101.5 BUN/Creatinine Ratio 8 (6-20) Glucose Level 135 mg/dL (70-99) H Calcium Level 8.4 mg/dL (8.5-10.1) L Total Bilirubin 0.2 mg/dL (0.2-1.0) Aspartate Amino Transferase (AST) 12 U/L (15-37) L Alanine Aminotransferase (ALT) 14 U/L (16-63) L Alkaline Phosphatase 57 U/L (46-116) Total Protein 6.0 g/dL (6.4-8.2) L Albumin 3.3 g/dL (3.4-5.0) L Albumin/Globulin Ratio 1.2 (1.0-1.7) Amylase Level 69 U/L (25-115) Lipase 94 U/L (73-393) Laboratory Tests 09/03/18 21:46 Laboratory Tests 09/03/18 21:46 (AMADOU DRIVER DO) Lab Values Laboratory Tests Test 09/03/18 21:38 09/03/18 21:46 Urine Collection Type Unknown Urine Color Yellow Urine Clarity Clear Urine pH 6.5 Urine Specific [place] <=1.005 Urine Protein Negative mg/dL (NEG-TRACE) Urine Glucose (UA) Negative mg/dL (NEG) Urine Ketones (Stick) Negative mg/dL (NEG) Urine Blood Negative (NEG) Urine Nitrite Negative (NEG) Urine Bilirubin Negative (NEG) Urine Urobilinogen Dipstick 0.2 mg/dL (0.2 mg/dL) Urine Leukocyte Esterase Negative (NEG) Urine RBC 0 /HPF (0-2) Urine WBC 0 /HPF (0-4) Urine Squamous Epithelial Cells Occ /LPF Urine Bacteria 0 /HPF (0-FEW) Urine Opiates Screen Neg (NEG) Urine Methadone Screen Neg (NEG) Urine Barbiturates Neg (NEG) Urine Phencyclidine Screen Neg (NEG) Urine Amphetamine/Methamphetamine Neg (NEG) Urine Benzodiazepines Screen Neg (NEG) Urine Cocaine Screen Neg (NEG) Urine Cannabinoids Screen Neg (NEG) Urine Ethyl Alcohol Neg (NEG) White Blood Count 6.3 x10^3/uL (4.0-11.0) Red Blood Count 4.34 x10^6/uL (4.30-5.70) Hemoglobin 13.4 g/dL (13.0-17.5) Hematocrit 41.2 % (39.0-53.0) Mean Corpuscular Volume 95 fL (79-100) Mean Corpuscular Hemoglobin 31 pg (25-35) Mean Corpuscular Hemoglobin Concent 33 g/dL (31-37) Red Cell Distribution Width 14.2 % (11.5-14.5) Platelet Count 212 x10^3/uL (140-400) Neutrophils (%) (Auto) 50 % (31-73) Lymphocytes (%) (Auto) 39 % (24-48) Monocytes (%) (Auto) 5 % (0-9) Eosinophils (%) (Auto) 4 % (0-3) H Basophils (%) (Auto) 1 % (0-3) Neutrophils # (Auto) 3.2 x10^3uL (1.8-7.7) Lymphocytes # (Auto) 2.5 x10^3/uL (1.0-4.8) Monocytes # (Auto) 0.3 x10^3/uL (0.0-1.1) Eosinophils # (Auto) 0.3 x10^3/uL (0.0-0.7) Basophils # (Auto) 0.1 x10^3/uL (0.0-0.2) Sodium Level 142 mmol/L (136-145) Potassium Level 4.1 mmol/L (3.5-5.1) Chloride Level 103 mmol/L (98-107) Carbon Dioxide Level 33 mmol/L (21-32) H Anion Gap 6 (6-14) Blood Urea Nitrogen 6 mg/dL (8-26) L Creatinine 0.8 mg/dL (0.7-1.3) Estimated GFR (Cockcroft-Gault) 101.5 BUN/Creatinine Ratio 8 (6-20) Glucose Level 135 mg/dL (70-99) H Calcium Level 8.4 mg/dL (8.5-10.1) L Total Bilirubin 0.2 mg/dL (0.2-1.0) Aspartate Amino Transferase (AST) 12 U/L (15-37) L Alanine Aminotransferase (ALT) 14 U/L (16-63) L Alkaline Phosphatase 57 U/L (46-116) Total Protein 6.0 g/dL (6.4-8.2) L Albumin 3.3 g/dL (3.4-5.0) L Albumin/Globulin Ratio 1.2 (1.0-1.7) Amylase Level 69 U/L (25-115) Lipase 94 U/L (73-393) Laboratory Tests 09/03/18 21:46 Laboratory Tests 09/03/18 21:46 (LOWELL BLUE APRN) EKG EKG [] (LOWELL BLUE APRN) Radiology/Procedures Radiology/Procedures IMPRESSION: 1. Extensive pancreatic parenchymal calcifications due to chronic pancreatitis. There is no convincing acute pancreatitis on this exam. Correlate with pancreatic laboratory values. 2. Irregular pancreatic ductal dilatation likely due to the sequela of chronic pancreatitis. This can be better assessed with a pancreatic protocol CT or MRI. 3. Large amount of stool throughout the colon. Correlate for constipation. 4. Small right renal cyst. Electronically signed by: Jessica Young MD (09/03/2018 11:14 PM) [facility] DICTATED and SIGNED BY: JESSICA YOUNG MD DATE: 09/03/18 [id number] [] (LOWELL BLUE APRN) Course & Med Decision Making Course & Med Decision Making Pertinent Labs and Imaging studies reviewed. (See chart for details) Discussed findings with patient. Patient reported minimal improvement in discomfort following pain medication. Discussed constipating effects of pain medication, with large amount of stool on image. Discussed no acute pancreatitis at this time. Patient reports he does not believe he is constipated as he has never been and has been having regular bowel movements. Discussed labs being normal today without signs of pancreatitis and CT imaging without evidence of acute pancreatitis. Discussed use of stool softener or Mag Citrate. Discussed follow up with PCP Patient understands, in agreement with plan. [] (LOWELL BLUE APRN) Dragon Disclaimer Dragon Disclaimer This electronic medical record was generated, in whole or in part, using a voice recognition dictation system. (LOWELL BLUE APRN) Departure Departure Impression: Primary Impression: Abdominal pain Additional Impressions: Chronic pancreatitis Constipation Disposition: HOME, SELF-CARE Condition: GOOD Referrals: SANDRA LAWLER (PCP) Patient Instructions: Abdominal Pain (Nonspecific), Constipation, Adult, [id number] Additional Instructions: As we discussed, you can consider use of Mag Citrate, you can buy it over the counter at the pharmacy or most grocery stores. Mix half the bottle with the same quantity of Sprite for better flavor. If you do not have a bowel movement within approximately 1-2 hours, drink the other half, mixed similarly. Attending Signature Attending Signature I have reviewed the PA/CIRCULATION MANAGER's note and plan of care. I was available for consultation as needed during the patient's visit in the emergency department. I agree with the clinical impression, plan, and disposition. (AMADOU DRIVER DO) Problem Qualifiers LOWELL BLUE APRN September 03, 2018 22:01 AMADOU DRIVER DO September 16, 2018 01:55
[2018-09-03 22:10] LABS: BASO # 0.1 x10^3/uL (0.0-0.2); BASO % 1 % (0-3); EOS # 0.3 x10^3/uL (0.0-0.7); EOS % 4 % (0-3); HEMATOCRIT 41.2 % (39.0-53.0); HEMOGLOBIN 13.4 g/dL (13.0-17.5); LYMPH # 2.5 x10^3/uL (1.0-4.8); LYMPH % 39 % (24-48); MEAN CORPUSCULAR HEMOGLOBIN 31 pg (25-35); MEAN CORPUSCULAR HGB CONC 33 g/dL (31-37); MEAN CORPUSCULAR VOLUME 95 fL (79-100); MONO # 0.3 x10^3/uL (0.0-1.1); MONO % 5 % (0-9); NEUT # 3.2 x10^3uL (1.8-7.7); NEUT % 50 % (31-73); PLATELET COUNT 212 x10^3/uL (140-400); RED BLOOD COUNT 4.34 x10^6/uL (4.30-5.70); RED CELL DISTRIBUTION WIDTH 14.2 % (11.5-14.5); WHITE BLOOD COUNT 6.3 x10^3/uL (4.0-11.0)
[2018-09-03 22:15] LABS: BILIRUBIN,URINE NEGATIVE (NEG); CLARITY,URINE CLEAR; COLOR,URINE YELLOW; NITRITE,URINE NEGATIVE (NEG); PH,URINE 6.5; PROTEIN,URINE NEGATIVE (NEG-TRACE); UROBILINOGEN,URINE 0.2 mg/dL (0.2 mg/dL)
[2018-09-03 22:18] LABS: CALCIUM 8.4 mg/dL (8.5-10.1); CREATININE 0.8 mg/dL (0.7-1.3); GFR 101.5; POTASSIUM 4.1 mmol/L (3.5-5.1)
[2018-09-03 22:20] LABS: BARBITURATES NEG (NEG); BENZODIAZEPINES NEG (NEG); CANNABINOIDS NEG (NEG); COCAINE NEG (NEG); METHADONE NEG (NEG); OPIATES NEG (NEG); PHENCYCLIDINE NEG (NEG)
[2018-09-03 22:23] LABS: AMPHETAMINE/METHAMPHETAMINE NEG (NEG)
[2018-09-03 22:24] LABS: ALBUMIN 3.3 g/dL (3.4-5.0); ALBUMIN/GLOBULIN RATIO 1.2 (1.0-1.7); TOTAL BILIRUBIN 0.2 mg/dL (0.2-1.0)
[2018-09-03 22:27] LABS: BACTERIA,URINE 0 /HPF (0-FEW); RBC,URINE 0 /HPF (0-2); SQUAMOUS EPITHELIAL CELL,UR OCC /LPF; WBC,URINE 0 /HPF (0-4)
[2018-09-03] MEDS ORDERED: IOHEXOL 300 MG/ML 100ML VIAL. IV ONE (23:00)
[2018-09-03] MEDS ORDERED: CONTRAST GIVEN. MC PRN (23:00)
--- NOTE | 2018-09-03 23:17 | RAD ---
EXAM: Abdomen and pelvis CT with intravenous contrast. HISTORY: Pain. TECHNIQUE: Computed tomographic images of the abdomen and pelvis were obtained following the administration of 75 cc Omnipaque 300 intravenous contrast. Multiplanar reformatting was performed. *One or more of the following individualized dose reduction techniques were utilized for this examination: 1. Automated exposure control. 2. Adjustment of the mA and/or kV according to patient size. 3. Use of iterative reconstruction technique. COMPARISON: 12/06/2017. FINDINGS: Evaluation of the lower thorax demonstrates posterior dependent and basilar atelectasis. There is no suspicious hepatic lesion. There are calcifications throughout the pancreas, consistent with the sequela of chronic pancreatitis. There is irregular pancreatic ductal dilatation. There is no convincing acute pancreatitis. There are prominent vessels within the splenic hilum, suggesting collateralization There is a benign calcification within the spleen. The adrenal glands and kidneys are unremarkable. There is a small cyst within the lower pole the right kidney. There is a large amount of stool throughout the colon. Evaluation for bowel wall thickening is limited in the absence of intraperitoneal fat. No convincing obstruction, colitis or enteritis is seen. The urinary bladder is distended. There is no lymphadenopathy. There is instrumented posterior spinal fusion with disc space fusion device placement at L4-L5. There is mild lumbar dextroscoliosis. IMPRESSION: 1. Extensive pancreatic parenchymal calcifications due to chronic pancreatitis. There is no convincing acute pancreatitis on this exam. Correlate with pancreatic laboratory values. 2. Irregular pancreatic ductal dilatation likely due to the sequela of chronic pancreatitis. This can be better assessed with a pancreatic protocol CT or MRI. 3. Large amount of stool throughout the colon. Correlate for constipation. 4. Small right renal cyst. Electronically signed by: Jessica Craft MD (09/03/2018 11:14 PM) [facility]
[2018-09-03 23:47] VITALS: BP 106/61
== END 2018-09-03 23:44 | disposition home or self-care (01) ==
LOC: ER 21:18
DX: K86.1 Other chronic pancreatitis (principal); R11.2 Nausea with vomiting, unspecified; K59.00 Constipation, unspecified; F41.9 Anxiety disorder, unspecified; F32.9 Major depressive disorder, single episode, unspecified; G89.29 Other chronic pain; Z88.0 Allergy status to penicillin; Z88.2 Allergy status to sulfonamides; Z88.6 Allergy status to analgesic agent; Z88.1 Allergy status to other antibiotic agents
CPT/HCPCS: 36415; 74177; 80053; 80307; 81001; 82150; 83690; 85025; 96361; 96374; 96375; 96376; 99285; J2270; J2405; J7030; Q9967